=== PATIENT | male | born 1950 | race Caucasian/White ===

== ENCOUNTER 2018-08-27 06:57 | Inpatient (IN) | payer BC, MEDICARE ==
--- NOTE | 2018-08-13 11:32 | HP ---
AMENDED REPORT NOW INCLUDES COSIGNER DESIGNATION HISTORY AND PHYSICAL: DATE OF SURGERY: 08/27/18 DATE OF OFFICE VISIT: 08/12/18 SURGEON: Sabra Kahn MD.* (DICTATED BY QUITA FLYNN) PROCEDURE: Left total hip arthroplasty. CHIEF COMPLAINT: Left hip pain. HISTORY OF PRESENT ILLNESS: Mr. Lobato is a 67-year-old gentleman with complaints of left hip pain. He has failed conservative treatment and elected to proceed with a left total hip arthroplasty. PAST MEDICAL HISTORY: Hypertension, depression, anxiety, and history of alcohol addiction. PAST SURGICAL HISTORY: Right rotator cuff repair, lumbar diskectomy, and a right quad tendon repair. CURRENT MEDICATIONS: 1. Propranolol 60 mg daily. 2. Aspirin 81 mg daily. 3. Multivitamin. 4. Ibuprofen as needed. ALLERGIES: No known drug allergies. FAMILY HISTORY: Unknown. He is adopted. SOCIAL HISTORY: He is a 67-year-old gentleman who lives with his spouse. He does not smoke or use drugs. Uses occasional alcohol. REVIEW OF SYSTEMS: A complete 14-point review of systems was reviewed with the patient, was all negative or noncontributory. He denies a history of DVT, PE, hepatitis, HIV, or anesthesia problems. PHYSICAL EXAMINATION GENERAL: He is well developed, well nourished, in no acute distress. VITAL SIGNS: He stands 6 feet 2 inches tall, weighs 240 pounds. Blood pressure is 164/100, his pulse is 64. HEENT: Normocephalic, atraumatic. NECK: Supple. No palpable lymph nodes. PULMONARY: The lungs are clear to auscultation bilaterally. CARDIO: Regular rate and rhythm. Strong S1, S2. ABDOMEN: Soft, nontender, and nondistended. NEUROLOGICAL: He is alert and oriented x3. MUSCULOSKELETAL: Left lower extremity: The skin is intact. There are no open wounds or abrasions. He walks with an antalgic-type gait favoring his left hip. He has 90 degrees of hip flexion, 0 degrees internal rotation, 30 degrees of external rotation. He has 2+ dorsalis pedis pulse. Intact sensation. His lower extremity muscle group strengths are intact at 5/5. ASSESSMENT AND PLAN: Mr. Lobato is a 67-year-old gentleman with end-stage osteoarthritis of the left hip pain. He has failed conservative treatment and elected to proceed with a left total hip arthroplasty. The surgery is scheduled for 08/27/[address] Kahn discussed the risks and benefits of the surgery at today's visit and all of his questions were answered. He will follow up with Dr. Kahn 2 weeks after the surgery. QUITA FLYNN [id number]/[facility] #: [id number] TORO
[~2018-08-27 06:57] MED LIST: Buffered Lidocaine 1% SYRIN* 1 ML/SYRINGE INTRADERM ONE; Lactated Ringers 1000 ML Bag* 1,000 ML IV SCH
[2018-08-27] MEDS ORDERED: Propofol* 10 MG/ML 20 ML BTL ONE (07:00)
[2018-08-27] MEDS ORDERED: Lidocaine 2% PF * 5 ML VIAL ONE (07:00)
[2018-08-27] MEDS ORDERED: Dexmedetomidine* 200 MCG/2 ML 2 ML VIAL ONE (07:01)
[2018-08-27] MEDS ORDERED: ROPIVACAINE 5 MG/ML 30 ML BTL (0.5%) ONE (07:01)
[2018-08-27] MEDS ORDERED: ceFAZolin 2 GM PREMIX in ORs 2 GM/50 ML BAG IVPB ONE (07:49)
[2018-08-27] MEDS ORDERED: Bupivacaine 0.5% SDV PF* 30ML VIAL ONE (07:50)
[2018-08-27] MEDS ORDERED: Midazolam* 1 MG/ML 2 ML VIAL (2 MG) ONE (07:54)
[2018-08-27 07:57] VITALS: BP 130/80
[2018-08-27] MEDS ORDERED: Rocuronium* 10 MG/ML VIAL ONE (08:12)
== END 2018-08-27 09:07 | disposition home or self-care (01) | DRG 351 ==
LOC: AA 06:57
PROVIDERS: ADMIT Orthopaedic Surgery Adult Reconstructive Orthopaedic Surgery; ATTEND Orthopaedic Surgery Adult Reconstructive Orthopaedic Surgery
DX: M16.12 Unilateral primary osteoarthritis, left hip (principal); I10 Essential (primary) hypertension; F32.9 Major depressive disorder, single episode, unspecified; F41.9 Anxiety disorder, unspecified; Z72.89 Other problems related to lifestyle
CPT/HCPCS: J0690; J2250; J2704; J2795

== ENCOUNTER 2018-09-22 10:06 | Inpatient (IN) | payer BC, MEDICARE ==
--- NOTE | 2018-09-09 13:30 | HP ---
HISTORY AND PHYSICAL: DATE OF ADMISSION/SURGERY: 09/22/18 DATE OF OFFICE VISIT: 09/09/18 SURGEON: Sabra Kahn MD * (DICTATED BY QUITA FLYNN) PROCEDURE: Left total hip arthroplasty. CHIEF COMPLAINT: Left hip pain. HISTORY OF PRESENT ILLNESS: Mr. Lobato is a 67-year-old gentleman with end- stage osteoarthritis of the left hip. He has failed conservative treatment and elected to proceed with a left total hip arthroplasty. PAST MEDICAL HISTORY: 1. Hypertension. 2. Depression. 3. Anxiety. 4. History of alcohol addiction. PAST SURGICAL HISTORY: 1. Right rotator cuff repair. 2. Diskectomy. 3. Right quad tendon repair. 4. Placement of a chest tube. CURRENT MEDICATIONS: 1. Propranolol 60 mg a day. 2. Daily multivitamin. 3. [place] 5/325 as needed. 4. Benicar 20/12.5 mg a day. ALLERGIES: No known drug allergies. FAMILY HISTORY: Unknown. SOCIAL HISTORY: He is a 67-year-old gentleman, lives with his spouse. He does not use drugs or smoke. He reports having a few drinks per week. REVIEW OF SYSTEMS: A complete 14-point review of systems reviewed with the patient. It was all negative or noncontributory. He denies history of DVT, PE , hepatitis, HIV, or anesthesia problems. PHYSICAL EXAMINATION GENERAL: He is well developed, well nourished, in no acute distress. VITAL SIGNS: He stands 6 feet 2 inches tall, weighs 235 pounds. His blood pressure is 130/88, his heart rate is 64. HEENT: Normocephalic, atraumatic. NECK: Supple. No palpable lymph nodes. PULMONARY: The lungs are clear to auscultation bilaterally. CARDIO: Regular rate and rhythm. Strong S1, S2. ABDOMEN: Soft, nontender, nondistended. NEUROLOGICAL: He is alert and oriented x3. MUSCULOSKELETAL: Left lower extremity, the skin is intact. There are no open wounds or abrasions. He walks with an antalgic type gait favoring his left hip. He has decreased internal and external rotation of the right hip. He has a 2+ dorsalis pedis pulse. Intact sensation. His lower extremity muscle group strengths are intact at 5/5. ASSESSMENT AND PLAN: Mr. Lobato is a 67-year-old gentleman with end-stage osteoarthritis of the left hip. He has failed conservative treatment and elected to proceed with a left total hip arthroplasty. The surgery is scheduled for 09/22/[address] Kahn discussed the risks and benefits of the surgery at today's visit and all of his questions were answered. He will follow up with Dr. Kahn 2 weeks after the surgery. QUITA FLYNN [id number]/[facility] #: [id number] MTDD
[~2018-09-22 10:06] MED LIST changes: +Acetaminophen IV 1GM/100ML * 1,000 MG/100 ML VIAL IVPB ONE; +Dexamethasone IV* 4 MG/ML 1 ML (4 MG) IV SLOW PU ONE; +Famotidine IV* 10 MG/ML 2 ML (20 mg) IV ONE; +Gabapentin CAP(*) 300 MG PO ONE; +celeCOXIB CAP* 200 MG PO ONE
--- OUTSIDE RECORDS SUMMARY | 2018-09-22 10:11 | XMS REPORT | Continuity of Care Document ---
:1950 External Reference #:[id number] Author Name Yanni Bunch Care Team Providers Name Role Phone Ryan Rothman MD Primary Care Physician Unavailable Payers Date Identification Numbers Payment Provider Subscriber Policy Number: [id number] [facility] Flako Ruffin PayID: [id number] [address] [place] [address] Advance Directives Description No Information Available Problems Date Description Provider Status Onset: 06/24/2018 Localized, primary osteoarthritis Sabra Kahn M.D. Active Onset: 06/24/2018 Localized, primary osteoarthritis of Sabra Kahn M.D. Active the pelvic region and thigh Onset: 03/03/2017 Alcohol abuse with alcohol-induced Abrahan Aquino M.D. Active mood disorder Onset: 03/03/2017 Amnesia Abrahan Aquino M.D. Active Onset: 03/03/2017 Feeling irritable Abrahan Aquino M.D. 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 Currently consumes alcohol Recreational Drug Use Denies Drug Use Tobacco Use Start: Unknown Patient has never smoked Smoking Status Reviewed: 09/09/18 Patient has never smoked Exercise Type/Frequency Exercises sporadically Allergies, Adverse Reactions, Alerts Description No Known Drug Allergies Medications Medication Date Status Form Strength Qnty SIG Indications Ordering Provider Hospital Bed 07/17/ Active use for M16.0 Sabra 2019 after left Zana Kahn hip replacement Propranolol 03/03/ Active Tablets 60mg 30tab 1 by mouth Christopher HCL 2017 s every day Zana Aquino Multi Vitamin 00/00/ Active Tablets 1 by mouth Unknown 0000 every day Benicar HCT / Active Tablets 20-12.5mg 1 by mouth Unknown 0000 every day Hydrocodone-A / Active Tablets 5-325mg 1 or 2 tabs Unknown cetaminophen 0000 by mouth every 6-8 hours as needed for pain [place] 08/03/ Hx Tablets 5-325mg 60tab 1 tabs by Sabra 2019 - s mouth every Zana Kahn hours as 2019 needed for pain Tramadol HCL 07/24/ Hx Tablets 50mg 120ta 1 tablet by Sabra 2019 - bs mouth every Zana Kahn hours as 2018 needed pain Symbicort / Hx Aerosol 160-4.5mc 2 puff twice Unknown 0000 - g/Act a day, as 2017 Alprazolam / Hx Tablets 0.25mg one by mouth Unknown 0000 - up to three 02/23/ times daily 2016 as needed for anxiety Trazodone HCL / Hx Tablets 50mg 1 tablet at Unknown 0000 - bedtime as 2017 Naltrexone / Hx Tablets 50mg 1 by mouth Unknown HCL 0000 - every day 2017 Thiamine HCL / Hx Tablets 100mg 1 by mouth Unknown 0000 - every day 2016 Aspir-81 / Hx Tablets 81mg 30tab 1 by mouth Unknown 0000 - DR s every day 2018 Meloxicam / Hx Tablets 15mg 1 by mouth Unknown 0000 - every day 2018 Acamprosate / Hx Tablets 333mg 2 tabs by Unknown Calcium 0000 - DR mouth three 08/11/ times a day 2018 Tramadol HCL / Hx Tablets 50mg Take One Unknown 0000 - Tablet By 07/17/ Mouth Every 2018 6 Hours as Needed Maximum Daily Dose 4 Tablets Ibuprofen / Hx Unknown 0000 - 2018 Medications Administered in Office Medication Date Status Form Strength Qnty SIG Indications Ordering Provider Depomedrol Administered Injection Sabra 40MG 018 Zana Kahn Depomedrol Administered Injection Sabra 40MG 018 Femi, M.D. Immunizations Description No Information Available Vital Signs Date Vital Result Comment 09/09/2018 9:23am Height 74 inches 6'2" Weight 235.00 lb Heart Rate 64 /min BP Systolic 130 mmHg BP Diastolic 88 mmHg BMI (Body Mass Index) 30.2 kg/m2 08/12/2018 10:12am Height 74 inches 6'2" Weight 240.00 lb Heart Rate 64 /min BP Systolic 164 mmHg BP Diastolic 100 mmHg BMI (Body Mass Index) 30.8 kg/m2 08/03/2018 9:14am Height 74 inches 6'2" Heart Rate 64 /min BP Systolic 132 mmHg BP Diastolic 84 mmHg Body Temperature 97.0 F Pain Level 8 07/17/2018 8:17am Height 74 inches 6'2" Weight 225.00 lb BP Systolic 192 mmHg BP Diastolic 120 mmHg Pain Level 8 BMI (Body Mass Index) 28.9 kg/m2 06/24/2018 10:38am Height 74 inches 6'2" Weight 225.00 lb BP Systolic 148 mmHg BP Diastolic 84 mmHg Respiratory Rate 17 /min Pain Level 6 BMI (Body Mass Index) 28.9 kg/m2 03/03/2017 8:20am Height 74 inches 6'2" Weight 222.00 lb Heart Rate 64 /min BP Systolic Sitting 134 mmHg BP Diastolic Sitting 86 mmHg Respiratory Rate 12 /min BMI (Body Mass Index) 28.5 kg/m2 Results Test Date Facility Test Result H/L Range Note Inr/Protime 08/14/2018 [facility] Inr 0.94 N 0.77-1.[address] [place] [address] [phone] Laboratory test 08/14/2018 [facility] Partial 31.5 seconds N 26.0-36.[address] [place] [address] PTT [phone] CBC Auto Diff 08/14/2018 [facility] White Blood 10.6 10^3/uL N 3.5-10.[address] [place] [address] [phone] Red Blood Count 4.93 10^6/uL N 4.00-5.40 Hemoglobin 14.2 g/dL N 14.0-18.0 Hematocrit 43 % N 42-52 Mean Corpuscular Volume 87 fL N 80-94 Mean Corpuscular Hemoglobin 29 pg N 27-31 Mean Corpuscular HGB Conc 33 g/dL N 31-36 Red Cell Distribution Width 15 % N 10.5-15 Platelet Count 379 10^3/uL N 150-450 Mean Platelet Volume 7.0 fL Low 7.4-10.4 Abs Neutrophils 7.7 10^3/uL N 1.5-7.7 Abs Lymphocytes 1.6 10^3/uL N 1.0-4.8 Abs Monocytes 0.8 10^3/uL N 0-0.8 Abs Eosinophils 0.4 10^3/uL N 0-0.6 Abs Basophils 0.1 10^3/uL N 0-0.2 Abs Nucleated RBC 0 10^3/uL Granulocyte % 72.8 % Lymphocyte % 14.9 % Monocyte % 7.4 % Eosinophil % 3.9 % Basophil % 1.0 % Nucleated Red Blood Cells % 0 Urinalysis Profile 08/14/2018 [facility] Urine Color Yellow [address] [place] [address] [phone] Urine Appearance Cloudy Urine Specific [place] 1.035 High 1.010-1.030 Urine pH 5.0 N 5-9 Urine Urobilinogen Negative Negative Urine Ketones Negative Negative Urine Protein 1+(30 mg/dL) Abnormal Negative Urine Leukocytes Negative Negative Urine Blood Negative Negative Urine Nitrite Negative Negative Urine Bilirubin Negative Negative Urine Glucose Negative Negative Urine White Blood Cell Trace(0-5/hpf) Absent Urine Red Blood Cell 1+(3-5/hpf) Abnormal Absent Urine Bacteria Absent Absent Urine Squamous Epithelial Cell Present Abnormal Absent Urine Hyaline Casts Present Abnormal Absent Type & Screen 08/14/2018 [facility] Patient Blood Type O Positive [address] [place] [address] [phone] Antibody Screen NEGATIVE Comp Metabolic Panel 08/14/2018 [facility] Sodium 142 mmol/L N 135-[address] [place] [phone] Potassium 4.0 mmol/L N 3.5-5.0 Chloride 106 mmol/L N 101-111 Co2 Carbon Dioxide 28 mmol/L N 22-32 Anion Gap 8 mmol/L N 2-11 Glucose 103 mg/dL High 70-100 Blood Urea Nitrogen 25 mg/dL High 6-24 Creatinine 0.95 mg/dL N 0.67-1.17 BUN/Creatinine Ratio 26.3 High 8-20 Calcium 9.3 mg/dL N 8.6-10.3 Total Protein 6.7 g/dL N 6.4-8.9 Albumin 4.1 g/dL N 3.2-5.2 Globulin 2.6 g/dL N 2-4 Albumin/Globulin Ratio 1.6 N 1-3 Total Bilirubin 0.40 mg/dL N 0.2-1.0 Alkaline Phosphatase 77 U/L N 34-104 Alt 13 U/L N 7-52 Ast 13 U/L N 13-39 Egfr Non- 79.1 >60 Egfr 95.7 >60 3 Urine Culture And 08/14/2018 [facility] Urine Culture SEE RESULT [address] [place] [address] [phone] 1 AA 08/27 2 AA 08/27 3 Because ethnic data is not always readily available, this report includes an eGFR for both -Americans and non- Americans. The National Kidney Disease Education Program (NKDEP) does not endorse the use of the MDRD equation for patients that are not between the ages of 18 and 70, are , have extremes of body size, muscle mass, or nutritional status, or are non- or non-. According to the National Kidney Foundation, irrespective of diagnosis, the stage of the disease is based on the level of kidney function: Stage Description GFR(mL/min/1.73 m(2)) 1 Kidney damage with normal or decreased GFR 90 2 Kidney damage with mild decrease in GFR 60-89 3 Moderate decrease in GFR 30-59 4 Severe decrease in GFR 15-29 5 Kidney failure <15 (or dialysis) 4 SEE RESULT BELOW Name: RYAN RUFFIN : [address]: Sabra Kahn MD Acct: [id number] Unit: [id number] AGE: 67 Location: PAT Re08/14/18 SEX: M Status: REG REF SPEC: [id number] VIKTOR: 08/14/[address]: Sabra Kahn MD REQ: [id number] RECD: 08/14/18 STATUS: COMP OTHR DR: Ryan Rothman MD _ SOURCE: URINE SPDESC: ORDERED: Urine Culture COMMENTS: ANNABEL 08/27 QUERIES: Urine Source: Clean Catch Procedure Result Reported Site Urine Culture Final 08/15/18- 1026 ML No Growth (<1,000 CFU/mL) * ML - Main Lab . END OF REPORT DEPARTMENT OF PATHOLOGY, [address] [place] [address] Buddy Gomez M.D. Director [facility] # [id number] Procedures Date Code Description Status 06/24/2018 85398 Inj/Aspir Major JT Or Bursa W/ US Completed Encounters Type Date Location Provider Dx Diagnosis Office Visit 08/03/2018 Orthopedic Sabra Kahn, M25.551 Pain in right hip 9:00a Services Of C.Ruth.Roni. MSamDSam M25.552 Pain in left hip M16.0 Bilateral primary osteoarthritis of hip Office Visit 07/17/2018 8:15a Orthopedic Services Sabra Kahn M25.551 Pain in right Of C.M.A. M.D. hip M25.552 Pain in left hip M16.0 Bilateral primary osteoarthritis of hip Office Visit 06/24/2018 10:00a Orthopedic Services Sabra Kahn M25.551 Pain in right Of C.M.A. M.D. hip M25.552 Pain in left hip M16.0 Bilateral primary osteoarthritis of hip M25.562 Pain in left knee M25.561 Pain in right knee M25.462 Effusion, left knee M25.461 Effusion, right knee M17.0 Bilateral primary osteoarthritis of knee Office Visit 03/03/2017 Juice Gauthier F10.14 Alcohol abuse with 8:00a Chioma Aquino M.D. alcohol-induced mood Services Of [employer] disorder R45.4 Irritability and anger R41.3 Other amnesia R94.02 Abnormal brain scan Plan of Treatment Future Appointment(s):10/05/2018 1:15 pm - Sabra Kahn M.D. at [facility]09/22/2018 2:30 pm - Silvio Sullivan PA-C at [facility]09/22/2018 2:30 pm - QUITA Mora at [facility]09/22/2018 2:30 pm - [facility] - Sabra Kahn M.D.M25.552 Pain in left hipFollow up:Follow up: 2 weeks after [id number] Bilateral primary osteoarthritis of hip
--- OUTSIDE RECORDS SUMMARY | 2018-09-22 10:11 | XMS REPORT | Continuity of Care Document ---
:1950 External Reference #:[id number] Author Name DattoLubna abdullahie Care Team Providers Name Role Phone Ryan Rothman MD Primary Care Physician Unavailable Payers Date Identification Numbers Payment Provider Subscriber Policy Number: [id number] [facility] Flako Ruffin PayID: [id number] [address] [place] [address] Advance Directives Description No Information Available Problems [...] s every day Zana Aquino Multi Vitamin // Active Tablets 1 by mouth Unknown 0000 every day Benicar HCT / Active Tablets 20-12.5mg 1 by mouth Unknown 0000 every day Hydrocodone-A / Active Tablets 5-325mg 1 or 2 tabs Unknown cetaminophen 0000 by mouth every 6-8 hours as needed for pain [place] 08/03/ Hx Tablets 5-325mg 60tab 1 tabs [...] Injection Sabra 40MG 018 Zana Kahn Depomedrol 12/19/2 Administered Injection Sabra 40MG 018 Zana Kahn Immunizations Description No Information Available Vital Signs [...] Date Facility Test Result H/L Range Note Type & Screen 09/09/2018 [facility] Patient Blood O Positive [address] [place] [address] [phone] Antibody Screen NEGATIVE Inr/Protime 08/14/2018 [facility] Inr 0.94 N 0.77-1.[address] [place] [address] [phone] Laboratory test 08/14/2018 [facility] Partial 31.5 seconds N 26.0-36.3 [address] [place] [address] PTT [phone] CBC Auto Diff 08/14/2018 [facility] White Blood 10.6 10^3/uL N 3.5-10.[address] [place] [address] [phone] Red Blood Count 4.93 10^6/uL N 4.00-5.40 [...] Blood Cells % 0 Urinalysis Profile 08/14/2018 [facility] Urine Color Yellow [address] [place] [address] [phone] Urine Appearance Cloudy Urine Specific [place] 1.035 High 1.010-1.030 Urine pH 5.0 N [...] Present Abnormal Absent Type & Screen 08/14/2018 [facility] Patient Blood Type O Positive [address] [place] [address] [phone] Antibody Screen NEGATIVE Comp Metabolic Panel 08/14/2018 [facility] Sodium 142 mmol/L N 135-145 [address] [place] [address] [phone] Potassium 4.0 mmol/L N 3.5-5.0 Chloride 106 [...] Egfr Non- 79.1 >60 Egfr 95.7 >60 4 Urine Culture And 08/14/2018 [facility] Urine Culture SEE RESULT [address] [place] [address] [phone] 1 PAIN IN LEFT HIP, BILATERAL PRIMARY OSTEOARTHRITIS 2 AA 08/27 3 AA 08/27 4 Because ethnic data is not always readily [...] 15-29 5 Kidney failure <15 (or dialysis) 5 SEE RESULT BELOW Name: RYAN RUFFIN Xiomara : [address]: Sabra Kahn MD Acct: [id number] Unit: [id number] AGE: 67 Location: [facility] Re08/14/18 SEX: M Status: REG REF SPEC: [id number] VIKTOR: 08/14/18-[address] [facility] [address]: Sabra Kahn MD REQ: [id number] RECD: 08/14/18 STATUS: ROMAN HENDRICKSON DR: Ryan Rothman MD _ SOURCE: URINE SPDESC: ORDERED: Urine Culture COMMENTS: ANNABEL 08/27 QUERIES: Urine Source: Clean Catch Procedure Result Reported Site Urine Culture Final 08/15/18- 1026 ML No Growth (<1,000 CFU/mL) * - Main Lab . END OF REPORT DEPARTMENT OF PATHOLOGY, [address] [place] [address] Buddy Gomez M.D. Director [facility] # [id number] Procedures Date Code Description Status 06/24/2018 Inj/Aspir Major JT Or Bursa W/ US Completed Encounters Type Date Location Provider Dx Diagnosis Office Visit 08/03/2018 Orthopedic Sabra Kahn, M25.551 Pain in right hip 9:00a Services [facility] MSamDSam M25.552 Pain in left hip M16.0 Bilateral primary osteoarthritis of hip Office Visit 07/17/2018 8:15a Orthopedic Services Sabra Kahn, M25.551 Pain in right Of C.M.A. M.D. hip M25.552 Pain in left hip M16.0 Bilateral primary osteoarthritis of hip Office Visit 06/24/2018 10:00a Orthopedic Services Sabra Kahn, M25.551 Pain in right Of C.M.A. M.D. hip M25.552 Pain in left hip M16.0 Bilateral primary osteoarthritis of hip M25.562 Pain in left knee M25.561 Pain in right knee M25.462 Effusion, left knee M25.461 Effusion, right knee M17.0 Bilateral primary osteoarthritis of knee Office Visit 03/03/2017 Juice Gauthier F10.14 Alcohol abuse with 8:00a Chioma Aquino M.D. alcohol-induced mood Services Of [employer] disorder R45.4 Irritability and anger R41.3 Other amnesia R94.02 Abnormal brain scan Plan of Treatment Future Appointment(s):10/05/2018 1:15 pm - Sabra Kahn M.D. at [facility]09/22/2018 2:30 pm - Silvio Sullivan PA-C at [facility]09/22/2018 2:30 pm - QUITA Mora at [facility].09/22/2018 2:30 pm - Sabra Kahn M.D. at [facility]09/09/2018 - Sabra Kahn M.D.M25.552 Pain in left hipFollow up:Follow up: 2 weeks after caghpabD03.0 Bilateral primary osteoarthritis of hip
[2018-09-22] MEDS ORDERED: Dexamethasone IV* 4 MG/ML 1 ML (4 MG) ONE (10:33)
[2018-09-22] MEDS ORDERED: celeCOXIB CAP* 100 MG ONE (10:33)
[2018-09-22] MEDS ORDERED: Famotidine IV* 10 MG/ML 2 ML (20 mg) ONE (10:33)
[2018-09-22] MEDS ORDERED: Gabapentin CAP(*) 300 MG ONE (10:33)
[2018-09-22] MEDS ORDERED: ceFAZolin 2 GM in NS PREMIX(*) 2 GM/100 ML BAG IVPB ONE (10:34)
[2018-09-22] MEDS ORDERED: ROPIVACAINE 5 MG/ML 30 ML BTL (0.5%) ONE (11:04)
[2018-09-22] MEDS ORDERED: Ropivacaine* 2 MG/ML 20 ML VIAL (0.2%) ONE (12:37)
[2018-09-22] MEDS ORDERED: fentaNYL* 50 MCG/ML 2 ML VIAL (100 MCG VIAL) ONE ×2 (12:43→15:37)
[2018-09-22] MEDS ORDERED: Midazolam* 1 MG/ML 5 ML VIAL (5 MG) ONE ×2 (12:43→15:21)
[2018-09-22] MEDS ORDERED: KETAMINE HCL* 50 MG/ML 10 ML VIAL ONE (12:43)
[2018-09-22] MEDS ORDERED: Bupivacaine 0.5% SDV PF* 30ML VIAL ONE (12:44)
[2018-09-22] MEDS ORDERED: Phenylephrine 10 MG/ML VIAL* 1 ML VIAL ONE (12:45)
[2018-09-22] MEDS ORDERED: Acetaminophen IV 1GM/100ML * 100 ML ONE (13:12)
[2018-09-22] MEDS ORDERED: Ondansetron INJ* 2 MG/ML VIAL ONE (13:17)
[2018-09-22] MEDS ORDERED: Bupivacaine 0.5%* 50 ML VIAL ONE (13:20)
[2018-09-22] MEDS ORDERED: Lidocaine 2% PF * 5 ML VIAL ONE (14:54)
[2018-09-22] MEDS ORDERED: Ondansetron INJ* 2 MG/ML VIAL IV PRN ×2 (15:07→17:14)
[2018-09-22] MEDS ORDERED: DiMENhydriNATE IV* 50 MG/ML VIAL IV PUSH PRN (15:07)
[2018-09-22] MEDS ORDERED: HYDROmorphone INJ1* 1 MG/ML SYRINGE IV PRN (15:07)
[2018-09-22] MEDS ORDERED: fentaNYL* 50 MCG/ML 2 ML VIAL (100 MCG VIAL) IV PRN (15:07)
[2018-09-22] MEDS ORDERED: Naloxone* 0.4 MG/ML 1 ML VIAL IV PRN (15:07)
[2018-09-22] MEDS ORDERED: Propofol* 10 MG/ML 20 ML BTL ONE (16:30)
[2018-09-22] MEDS ORDERED: Bisacodyl SUPP* 10 MG SUPP PR PRN (17:14)
[2018-09-22] MEDS ORDERED: diPHENhydraMINE IV* 50 MG/ML 1 ml VIAL (BENADRYL) IV PRN (17:14)
[2018-09-22] MEDS ORDERED: oxyCODONE/Acetamin 5/325 MG* TAB PO PRN (17:14)
[2018-09-22] MEDS ORDERED: Polyethylene Glycol 3350* 17 GM PACKET PO PRN (17:14)
[2018-09-22] MEDS ORDERED: Acetaminophen TAB* 325 MG PO PRN (17:14)
[2018-09-22] MEDS ORDERED: Magnesium Hydroxide LIQ* 30 ML UDC PO PRN (17:14)
[2018-09-22] MEDS ORDERED: Albuterol HFA INHALER* 8 gm MDI INH PRN (17:24)
--- NOTE | 2018-09-22 19:17 | CONS ---
CONSULTATION REPORT: DATE OF CONSULT: 09/22/18 REQUESTING PHYSICIAN: Dr. Sabra Kahn. ATTENDING PHYSICIAN: Dr. Charmaine Bose. REASON FOR CONSULT: Co-medical management of hypertension. HISTORY OF PRESENT ILLNESS/HOSPITAL COURSE: I refer you to Dr. Sabra Kahn's history and physical dictated on 09/09/18 for complete details, but in short, Mr. Lobato is a 67-year-old male with end-stage osteoarthritis of the left hip. He has failed conservative treatment and has elected to have a left total hip arthroplasty. PAST MEDICAL HISTORY: 1. Hypertension. 2. Depression. 3. Anxiety. PAST SURGICAL HISTORY: Left total knee arthroplasty, left ankle, right knee, lumbar spine, right rotator cuff. HOME MEDICATIONS: 1. Propranolol 60 mg p.o. q.a.m. 2. Benicar HCT 20/12.5 one tab p.o. q.a.m. 3. Hydrocodone/acetaminophen 5/325 one tab p.o. q.4 hours p.r.n. pain, MDD 6. 4. Albuterol HFA inhaler 2 puffs inhalation q.6 hours p.r.n. ALLERGIES: No known drug allergies. FAMILY HISTORY: The patient was adopted and knows nothing about his family medical history. SOCIAL HISTORY: The patient does not smoke and never has used tobacco. He denies use of recreational drugs. The patient states that he drinks 4 to 5 drinks per week. In the event that he is unable to make his own medical decisions, he appoints his , Flako Lobato, phone number [phone], to make medical decisions for him. REVIEW OF SYSTEMS: The patient denies chest pain, shortness of breath, cough, fever, abdominal pain, nausea, vomiting, diarrhea, constipation, pain in the lower extremities. He has a nerve block and currently denies left hip pain. PHYSICAL EXAM: General: Mr. Lobato is a well-developed, well-nourished white male, who is sitting up in bed. He is in no acute distress. He appears well. HEENT: Visual honeycutt are grossly intact. Pupils are equally round and reactive to light. Extraocular movements are intact. Sclerae are without icterus. His hearing is grossly intact. Oral mucous membranes are moist. Pharynx is clear. Cardiovascular: Regular rate and rhythm with S1, S2. No murmurs, rubs, or gallops. No JVD. Respiratory: Symmetrical chest expansion with no use of accessory muscles. Anterior lung sounds clear to auscultation. No rhonchi, wheezes, or rubs. Abdomen: Bowel sounds in all quadrants. Abdomen is soft and nontender to palpation. There is no hepatosplenomegaly. Extremities: Skin is warm and smooth bilaterally. The left hip has a dressing that is clean, dry, and intact. There is no clubbing or cyanosis. No edema. Radial and pedal pulses are 2+ bilaterally. Neuro: The patient is awake. He is alert and oriented x3. Sensation, movement, and capillary refill intact in bilateral lower extremities. ASSESSMENT AND PLAN: Mr. Lobato is a 67-year-old male with past medical history as described above, who presented to [facility] today for an elective total hip arthroplasty. The patient will be admitted for: 1. Left total hip arthroplasty. Management per Ortho. 2. Hypertension. The patient's home medications propranolol and Benicar will be held tonight. The patient will restart propranolol tomorrow with hold restrictions in place. Benicar can likely be restarted at discharge. 3. Code status: Full code. 4. DVT prophylaxis: Per Surgery, Lovenox 40 mg subcu q.24 hours. TIME SPENT: Approximately 20 minutes was spent on this consultation, greater than half that time was spent with the patient. QUITA CAMPBELL [id number]/[facility] #: [id number] TORO
[2018-09-22] MEDS: Lactated Ringers 1000 ML Bag* 1,000 ML IV SCH (20:09)
[2018-09-22] MEDS ORDERED: Warfarin TAB(*) 6 MG PO ONE (21:00)
[2018-09-22] MEDS: Docusate CAP* 100 MG PO SCH (21:50)
[2018-09-22] MEDS: Magnesium Hydroxide LIQ* 30 ML UDC PO SCH (21:51)
[2018-09-22] MEDS: Morphine 4 MG/ML VIAL (1 ml) 4 MG/ML VIAL IV PRN (21:51)
[2018-09-22] MEDS: ceFAZolin 1 GM in Dextrose (*) 1 GM/50 ML BAG IVPB SCH (21:59)
[2018-09-22] MEDS: oxyCODONE/Acetamin 5/325 MG* TAB PO PRN (22:03)
[2018-09-23] MEDS: oxyCODONE TAB* 5 MG TAB PO PRN ×6 (00:31→23:11)
[2018-09-23] MEDS: Morphine 4 MG/ML VIAL (1 ml) 4 MG/ML VIAL IV PRN ×2 (00:32→16:29)
[2018-09-23] MEDS: Cyclobenzaprine TAB* 10 MG PO PRN ×3 (00:38→18:15)
[2018-09-23] MEDS: oxyCODONE/Acetamin 5/325 MG* TAB PO PRN ×5 (03:09→21:01)
[2018-09-23] MEDS: ceFAZolin 1 GM in Dextrose (*) 1 GM/50 ML BAG IVPB SCH ×2 (05:45→12:35)
[2018-09-23 06:38] LABS: Hematocrit 35 % (36-46); Hemoglobin 11.5 g/dL (14.0-18.0); Mean Platelet Volume 7.1 fL (7.4-10.4); Platelet Count 314 10^3/uL (150-450)
[2018-09-23 06:48] LABS: INR 1.01 (0.77-1.02)
[2018-09-23] MEDS: Lactated Ringers 1000 ML Bag* 1,000 ML IV SCH (06:50)
[2018-09-23 07:08] LABS: BUN/Creatinine Ratio 25.5 (8-20); Calcium 8.6 mg/dL (8.6-10.3); EGFR African American 84.3 (>60); EGFR Non-African American 69.7 (>60); Potassium 3.9 mmol/L (3.5-5.0)
[2018-09-23] MEDS: Docusate CAP* 100 MG PO SCH ×2 (07:25→21:00)
[2018-09-23] MEDS: Magnesium Hydroxide LIQ* 30 ML UDC PO SCH ×2 (07:25→21:00)
[2018-09-23] MEDS: Propranolol LA CAP* 60 MG PO SCH (07:26)
[2018-09-23] MEDS ORDERED: Propranolol LA CAP* 60 MG PO SCH (09:00)
[2018-09-23] MEDS ORDERED: Hydrochlorothiazide TAB* 25 MG PO SCH (09:00)
[2018-09-23] MEDS ORDERED: Valsartan TAB* 160 MG PO SCH (09:00)
--- NOTE | 2018-09-23 10:25 | OP ---
DATE OF OPERATION: 09/22/18 - ROOM #341 DATE OF : 50. ATTENDING SURGEON: Sabra Kahn MD. COMPRESSOR OPERATOR: QUITA Trivedi. Mr. Sullivan did help throughout the procedure with preparation of the leg, wound retraction, manipulation of the hip, and wound closure. ANESTHESIOLOGIST: Dr. Conway. ANESTHESIA: Spinal. PRE-OP DIAGNOSIS: Severe endstage degenerative osteoarthritis of the left hip joint. POST-OP DIAGNOSIS: Severe endstage degenerative osteoarthritis of the left hip joint. OPERATIVE PROCEDURE: Left total hip arthroplasty. COMPLICATIONS: None. ESTIMATED BLOOD LOSS: 200 mL. SPECIMEN: Femoral head and acetabular reaming sent to pathology. HARDWARE USED: Uncemented Flomot total hip hardware. For the cup a Tritanium cluster hole 54 E; one 60-mm screw was used. For the liner, a Trident X3, 0 degree polyethylene liner 36E. For the stem, an Accolade II size 6 with a 127- degree neck. For the head, 36 -5 Biolox delta ceramic V40 femoral head. BRIEF HISTORY/INDICATION: Mr. Lobato is a 67-year-old gentleman with years of left hip pain. He failed conservative treatment with anti-inflammatories, pain medications, intraarticular injection and physical therapy. Due to continued pain and decreased quality of life, he elected to undergo left total hip arthroplasty. Informed consent was obtained from the patient. He understood the risk of surgery included but were not limited, bleeding, infection, damage to nearby structures, continued pain, need for further surgery, intraoperative fracture, nerve palsy, hardware failure or loosening, dislocation, leg length discrepancy, stroke, heart attack, blood clot, and . He wished to proceed. INTRAOPERATIVE FINDINGS: Intraoperatively, the patient was noted to have severe endstage arthritis with complete loss of cartilage along the femoral head and acetabulum. He had extensive osteophyte formation around the acetabulum. DESCRIPTION OF PROCEDURE: Mr. Lobato was identified in the preanesthesia unit. His left lower extremity was marked as the correct operative side. Informed consent was signed and placed in the chart. The patient was taken to the operating room and placed under anesthesia without difficulty. A Cornell catheter was placed. The patient was placed in the right lateral decubitus position on the peg board. All bony prominences were well padded. Left lower extremity was prepped and draped in the usual sterile fashion. Preop time-out was made to correctly identify the patient, side, and site. Appropriate perioperative antibiotics were given within 1 hour of incision. A posterior hip incision was made with a 10-blade and carried down to the lateral fascial layer. Lateral fascial layer was incised in line with the incision. Charnley retractor was placed. The piriformis and conjoint tendons were identified. off the posterolateral femur and tagged with #5 Ethibond . Electrocautery was used to make a standard posterolateral capsular flap and this was also tagged with #5 Ethibond. The hip was carefully dislocated. Lesser troch to center to the femoral head measured 55 mm. Oscillating saw was used to make the appropriate femoral neck cut. The femoral head was carefully removed. The femur was retracted anteriorly. After appropriate placement of the retractors the acetabulum was well visualized. A long handled knife was used to sharply remove any remaining labrum from the acetabular rim. The acetabulum was sequentially reamed up to a size 53. The 53 reamer obtained bleeding subchondral bone bed. The 53 trial had excellent fit. The final implant chosen was a 54 E Tritanium cluster hole shell. This was impacted into the acetabulum and had excellent fit and stability. Abduction angle and anteversion were appropriate. A single 60 mm screw was placed in the superoposterior quadrat for extra stability. A Trident X3 0 degree polyethylene liner 36E was chosen as the proper liner. This was impacted into the acetabulum. Stability of the liner was checked and rechecked and noted to be stable. Next, attention was turned to preparation of the femoral canal. A canal finder were used to enter the proximal femur. The femoral canal was sequentially broached up to a size 6. The size 6 broach had excellent fit and good stability. There was appropriate anteversion. A 127 neck trial with 36 +0 trial was chosen. Lesser troch to center of femoral head measurement was 60. Therefore, 36 -5 head trial was chosen. Lesser troch to center of femoral head measured 55 mm. The hip was reduced and taken through a range of motion. The hip was stable in all positions. There was soft tissue tension and appropriate leg lengths. The hip was carefully dislocated. All trials were removed. The final implant chosen was an Accolade II size 6 with a 127-degree neck angle. The stem was impacted into the femur without difficulty. The stem was stable with appropriate anteversion. A Biolox delta ceramic V40 femoral head 36 -5 was chosen and impacted onto the femoral neck. Final measurements of lesser troch to the center of femoral head measured 55 mm. The hip was reduced and taken through range of motion. The hip was stable in all positions. The hip was copiously irrigated with sterile saline. Previously tagged capsule and tendons were reapproximated to the posterolateral femur through 2 trochanteric drill holes. The lateral fascial layer was closed using interrupted #1 Vicryls. The rest of the incision was closed in a layered fashion using 0 and 2-0 Vicryls. Skin was closed using running 3-0 Monocryl and Dermabond. Sterile Adaptic, 4x4s, and paper tape were used to cover the incision. The patient's anesthesia was reversed without difficulty. He was taken to the PACU in stable condition. Intended weightbearing will be weightbearing as tolerated. Intended DVT prophylaxis will be Eliquis. [id number]/[facility] #: [id number] TORO
[2018-09-23] MEDS: Enoxaparin(*) 40 MG/0.4 ML SYR SUBCUT SCH (12:35)
--- NOTE | 2018-09-23 15:35 | PN ---
Progress Note - Progress Note Date of Service: 09/23/18 SOAP: Subjective: []Pt seen and examined at bedside POD [address] Kahn. Denies CP, SOB, dizziness or nausea Objective: []General: Well appearing, NAD LLE: Left hip dressing CDI, thigh is soft, DF/PF intact, DP2+, sensation intact to light touch distally Calves supple and nontender without erythema, edema or palpable cords Assessment: []LTH 09/22 Dr Kahn Plan: []WBAT PT/OT Posterior hip precautions Lovenox bridge to coumadin. COumdin 8 mg today Anticipate DC home tomorrow Vital Signs Temp 97.1 F 09/23/18 11:14 Pulse 64 09/23/18 11:14 Resp 20 09/23/18 13:57 BP 96/55 09/23/18 11:14 Pulse Ox 95 09/23/18 11:14 Intake & Output 09/22/18 09/23/18 09/23/18 18:59 06:59 18:59 Intake Total 1700 1905 1255 Output Total 150 758 675 Balance 1550 1147 580 Weight 231 lb Intake: IV Fluids 1700 1105 670 LR 1600 1105 615 NS 100ML, Cefazolin 2G 100 cefazolin 55 IVPB 55 cefazolin 55 Oral 800 530 Output: Urine 675 Cornell 150 758 Laboratory Last Values Hgb 11.5 g/dL (14.0-18.0) L 09/23/18 06:02 Hct 35 % (36-46) L 09/23/18 06:02 Plt Count 314 10^3/uL (150-450) 09/23/18 06:02 MPV 7.1 fL (7.4-10.4) L 09/23/18 06:02 INR (Anticoag Therapy) 1.01 (0.77-1.02) 09/23/18 06:02 Sodium 138 mmol/L (135-145) 09/23/18 06:02 Potassium 3.9 mmol/L (3.5-5.0) 09/23/18 06:02 Chloride 101 mmol/L (101-111) 09/23/18 06:02 Carbon Dioxide 31 mmol/L (22-32) 09/23/18 06:02 Anion Gap 6 mmol/L (2-11) 09/23/18 06:02 BUN 27 mg/dL (6-24) H 09/23/18 06:02 Creatinine 1.06 mg/dL (0.67-1.17) 09/23/18 06:02 Est GFR ( Amer) 84.3 (>60) 09/23/18 06:02 Est GFR (Non-Af Amer) 69.7 (>60) 09/23/18 06:02 BUN/Creatinine Ratio 25.5 (8-20) H 09/23/18 06:02 Glucose 155 mg/dL (70-100) H 09/23/18 06:02 Calcium 8.6 mg/dL (8.6-10.3) 09/23/18 06:02
[2018-09-23] MEDS ORDERED: Warfarin TAB(*) 4 MG PO ONE (17:00)
--- NOTE | 2018-09-23 17:56 | PN ---
Subjective Date of Service: 09/23/18 Interval History: Pt c/o of pain in L hip. He states that he finished physical therapy approximately 30 minutes ago. He feels well otherwise, and denies CP, SOB, cough, fever, abd pain, n/v/d/c, difficulty urinating. He states he has not had a BM today. He is eating well. He denies calf pain. Objective Active Medications: Acetaminophen (Tylenol Tab*) 650 mg PO Q8H PRN Albuterol (Ventolin Hfa Inhaler*) 2 puff INH Q6H PRN Bisacodyl (Dulcolax Supp*) 10 mg PA DAILY PRN Cyclobenzaprine HCl (Flexeril Tab*) 5 mg PO TID PRN Diphenhydramine HCl (Benadryl Iv*) 25 mg IV Q6H PRN Docusate Sodium (Colace Cap*) 100 mg PO BID HUI Enoxaparin Sodium (Lovenox(*)) 40 mg SUBCUT Q24H HUI Lactated Ringer's (Lactated Ringers 1000 Ml Bag*) 1,000 mls @ 100 mls/hr IV PER RATE HUI Magnesium Hydroxide (Milk Of Magnesia Liq*) 30 ml PO BID HUI Magnesium Hydroxide (Milk Of Magnesia Liq*) 30 ml PO Q6H PRN Morphine Sulfate (Morphine 4 Mg/Ml Vial (1 Ml)) 2 mg IV Q2H PRN Ondansetron HCl (Zofran Inj*) 4 mg IV Q6H PRN Oxycodone HCl (Roxycodone Tab*) 10 mg PO Q4H PRN Oxycodone/Acetaminophen (Percocet 5/325 Tab*) 1 tab PO Q4H PRN Oxycodone/Acetaminophen (Percocet 5/325 Tab*) 2 tab PO Q4H PRN Polyethylene Glycol/Electrolytes (Miralax*) 17 gm PO DAILY PRN Propranolol HCl (Inderal La Cap*) 60 mg PO QAM HUI Tramadol HCl (Ultram*) 50 mg PO Q6H PRN Vital Signs: Temp Pulse Resp BP Pulse Ox 98.9 F 71 16 121/65 93 09/23/18 17:47 09/23/18 17:47 09/23/18 17:48 09/23/18 17:47 03/20/19 17:47 Oxygen Devices in Use Now: None Appearance: Pt is laying in bed with LE elevated. He appears to be slightly uncomfortable, but is in no acute distress. Eyes: No Scleral Icterus, PERRLA Ears/Nose/Mouth/Throat: NL Teeth, Lips, Gums, Mucous Membranes Moist Neck: NL Appearance and Movements; NL JVP, Trachea Midline Respiratory: Symmetrical Chest Expansion and Respiratory Effort, Clear to Auscultation Cardiovascular: NL Sounds; No Murmurs; No JVD, RRR, No Edema Abdominal: NL Sounds; No Tenderness; No Distention, No Hepatosplenomegaly Extremities: No Edema, No Clubbing, Cyanosis, - - L hip dressing is CDI. Sensation and pedal pulses intact. Neurological: Alert and Oriented x 3 Result Diagrams: 09/23/18 06:02 09/23/18 06:02 Assess/Plan/Problems-Billing Assessment: Pt is a 67 yom with PMHx of HTN who present for LTHA. - Patient Problems (1) Status post total hip replacement, left Comment: -Management per ortho team (2) Hypertension Comment: -Pt received all home medications this morning, and was slightly hypotensive -D/c valsartan, HCTZ -Continue propranol with hold parameters (3) DVT prophylaxis Comment: -Per ortho: Lovenox (4) Full code status Status and Disposition: Inpatient. Discharge per ortho team.
[2018-09-23] MEDS: traMADol TAB* 50 MG PO PRN (23:11)
[2018-09-24] MEDS: Morphine 4 MG/ML VIAL (1 ml) 4 MG/ML VIAL IV PRN (00:37)
[2018-09-24] MEDS: Cyclobenzaprine TAB* 10 MG PO PRN ×2 (00:38→16:15)
[2018-09-24] MEDS: oxyCODONE/Acetamin 5/325 MG* TAB PO PRN ×3 (03:44→22:09)
[2018-09-24 05:17] LABS: Hematocrit 30 % (36-46); Hemoglobin 10.2 g/dL (14.0-18.0); Mean Platelet Volume 7.1 fL (7.4-10.4); Platelet Count 244 10^3/uL (150-450)
[2018-09-24 05:26] LABS: INR 1.54 (0.77-1.02)
[2018-09-24] MEDS: Propranolol LA CAP* 60 MG PO SCH (08:29)
[2018-09-24] MEDS: Docusate CAP* 100 MG PO SCH ×2 (08:30→22:08)
[2018-09-24] MEDS: oxyCODONE TAB* 5 MG TAB PO PRN ×2 (08:30→19:38)
[2018-09-24] MEDS: Magnesium Hydroxide LIQ* 30 ML UDC PO SCH ×2 (08:30→22:08)
--- NOTE | 2018-09-24 09:59 | PN ---
Subjective Date of Service: 09/24/18 Interval History: Events from this AM reviewed Develop LH described as head foggy, chest discomfort described as felt "thick" in the setting of PT today that was notable for more pain than yesterday all resolved with rest in under 8 minutes Otherwise stable without complaints since yesterday. Objective Active Medications: Acetaminophen (Tylenol Tab*) 650 mg PO Q8H PRN PRN Reason: PAIN OR TEMPERATURE Albuterol (Ventolin Hfa Inhaler*) 2 puff INH Q6H PRN PRN Reason: WHEEZING Bisacodyl (Dulcolax Supp*) 10 mg OH DAILY PRN PRN Reason: constipation Cyclobenzaprine HCl (Flexeril Tab*) 5 mg PO TID PRN PRN Reason: SPASMS Last Admin: 09/24/18 00:38 Dose: 5 mg Diphenhydramine HCl (Benadryl Iv*) 25 mg IV Q6H PRN PRN Reason: itching Docusate Sodium (Colace Cap*) 100 mg PO BID [facility] Last Admin: 09/24/18 08:30 Dose: 100 mg Enoxaparin Sodium (Lovenox(*)) 40 mg SUBCUT Q24H [facility] Last Admin: 09/23/18 12:35 Dose: 40 mg Lactated Ringer's (Lactated Ringers 1000 Ml Bag*) 1,000 mls @ 100 mls/hr IV PER RATE [facility] Last Admin: 09/23/18 06:50 Dose: 100 mls/hr Magnesium Hydroxide (Milk Of Magnesia Liq*) 30 ml PO BID [facility] Last Admin: 09/24/18 08:30 Dose: 30 ml Magnesium Hydroxide (Milk Of Magnesia Liq*) 30 ml PO Q6H PRN PRN Reason: constipation Morphine Sulfate (Morphine 4 Mg/Ml Vial (1 Ml)) 2 mg IV Q2H PRN PRN Reason: PAIN Last Admin: 09/24/18 00:37 Dose: 2 mg Ondansetron HCl (Zofran Inj*) 4 mg IV Q6H PRN PRN Reason: nausea Last Admin: 09/24/18 09:20 Dose: 4 mg Oxycodone HCl (Roxycodone Tab*) 10 mg PO Q4H PRN PRN Reason: PAIN - SEVERE Last Admin: 09/24/18 08:30 Dose: 10 mg Oxycodone/Acetaminophen (Percocet 5/325 Tab*) 1 tab PO Q4H PRN PRN Reason: PAIN Oxycodone/Acetaminophen (Percocet 5/325 Tab*) 2 tab PO Q4H PRN PRN Reason: PAIN Last Admin: 09/24/18 03:44 Dose: 2 tab Polyethylene Glycol/Electrolytes (Miralax*) 17 gm PO DAILY PRN PRN Reason: Constipation Last Admin: 09/24/18 08:37 Dose: 17 gm Propranolol HCl (Inderal La Cap*) 60 mg PO QAM HUI Last Admin: 09/24/18 08:29 Dose: Not Given Tramadol HCl (Ultram*) 50 mg PO Q6H PRN PRN Reason: PAIN - MODERATE Last Admin: 09/23/18 23:11 Dose: 50 mg Vital Signs - 8 hr 09/24/18 09/24/18 09/24/18 01:58 03:26 03:44 Temperature 98.4 F 99.2 F Pulse Rate 72 67 Respiratory 16 18 16 Rate Blood Pressure 104/61 98/60 (mmHg) O2 Sat by Pulse 95 94 Oximetry 09/24/18 09/24/18 09/24/18 04:20 07:15 07:41 Temperature 98.5 F Pulse Rate 68 Respiratory 16 16 Rate Blood Pressure 107/61 (mmHg) O2 Sat by Pulse 94 95 Oximetry 09/24/18 09/24/18 09/24/18 08:00 08:28 08:30 Temperature Pulse Rate 62 Respiratory 18 Rate Blood Pressure 92/58 (mmHg) O2 Sat by Pulse 96 Oximetry 09/24/18 09/24/18 09/24/18 09:27 09:30 09:32 Temperature Pulse Rate 75 73 Respiratory 10 Rate Blood Pressure 75/49 84/56 98/50 (mmHg) O2 Sat by Pulse 96 Oximetry Oxygen Devices in Use Now: None, Nasal Cannula Appearance: NAD, sitting in chair Eyes: No Scleral Icterus, PERRLA Ears/Nose/Mouth/Throat: NL Teeth, Lips, Gums, Clear Oropharnyx Neck: NL Appearance and Movements; NL JVP, Trachea Midline Respiratory: Symmetrical Chest Expansion and Respiratory Effort, Clear to Auscultation Cardiovascular: RRR Abdominal: NL Sounds; No Tenderness; No Distention, No Hepatosplenomegaly Extremities: - - left leg wrapped, nv intact distally Neurological: Alert and Oriented x 3 Result Diagrams: 09/24/18 05:09 09/23/18 06:02 Assess/Plan/Problems-Billing Assessment: Pt is a 67 yom with PMHx of HTN s/p L [place] 09/22 - Patient Problems (1) Light-headed feeling Comment: Associated with chest discomfort x 8 minutes In setting of relative low blood pressure after resumption of all home medications and pain with PT EKG non-ischemic Monitor If recurs will trend trops and repeat EKG but would not get LHC at this time post-op day 2 (2) Hypertension Comment: -Pt received all home medications this 09/23 and was slightly hypotensive -D/c valsartan, HCTZ -held propranol 09/24 - c/w hold parameters (3) Status post total hip replacement, left Comment: -Management per ortho team (4) DVT prophylaxis Comment: -Per ortho: Lovenox Status and Disposition: Inpatient. Discharge per ortho team.
[2018-09-24] MEDS: traMADol TAB* 50 MG PO PRN (12:03)
[2018-09-24] MEDS: Enoxaparin(*) 40 MG/0.4 ML SYR SUBCUT SCH (12:04)
--- NOTE | 2018-09-24 12:04 | PN ---
Progress Note - Progress Note Date of Service: 09/24/18 SOAP: Subjective: []Pt seen and examined at bedside. He feels well without CP, SOB, dizziness or nausea. Hip pain is well controlled. This morning he has a short episode lasting roughly 5 minutes of feeling short of breath with chest "thickness". His O2 sat remained stable, he was hypotensive, an EKG was done which showed no ischemic changes, he was evaluated by the medical team. Objective: []General: Well appearing, NAD LLE: Left hip dressing changed, incision CDI, thigh is soft, DF/PF intact, DP2+ , sensation intact to light touch distally Calves supple and nontender without erythema, edema or palpable cords Assessment: []LTH 09/22 Dr Kahn Plan: []WBAT PT/OT Posterior hip precautions Lovenox bridge to coumadin. Coumdin 4 mg today Anticipate DC home tomorrow Vital Signs Temp 98.5 F 09/24/18 07:41 Pulse 73 09/24/18 09:32 Resp 16 09/24/18 10:35 BP 98/50 09/24/18 09:32 Pulse Ox 96 09/24/18 09:27 Intake & Output 09/23/18 09/24/18 09/24/18 18:59 06:59 18:59 Intake Total 1255 830 360 Output Total 875 1150 200 Balance 380 -320 160 Intake: IV Fluids 670 LR 615 cefazolin 55 IVPB 55 cefazolin 55 Oral 530 830 360 Output: Urine 875 1150 200 Other: # Bowel Movements 0 Laboratory Last Values Hgb 10.2 g/dL (14.0-18.0) L 09/24/18 05:09 Hct 30 % (36-46) L 09/24/18 05:09 Plt Count 244 10^3/uL (150-450) 09/24/18 05:09 MPV 7.1 fL (7.4-10.4) L 09/24/18 05:09 INR (Anticoag Therapy) 1.54 (0.77-1.02) H 09/24/18 05:09 Sodium 138 mmol/L (135-145) 09/23/18 06:02 Potassium 3.9 mmol/L (3.5-5.0) 09/23/18 06:02 Chloride 101 mmol/L (101-111) 09/23/18 06:02 Carbon Dioxide 31 mmol/L (22-32) 09/23/18 06:02 Anion Gap 6 mmol/L (2-11) 09/23/18 06:02 BUN 27 mg/dL (6-24) H 09/23/18 06:02 Creatinine 1.06 mg/dL (0.67-1.17) 09/23/18 06:02 Est GFR ( Amer) 84.3 (>60) 09/23/18 06:02 Est GFR (Non-Af Amer) 69.7 (>60) 09/23/18 06:02 BUN/Creatinine Ratio 25.5 (8-20) H 09/23/18 06:02 Glucose 155 mg/dL (70-100) H 09/23/18 06:02 Calcium 8.6 mg/dL (8.6-10.3) 09/23/18 06:02
[2018-09-24] MEDS ORDERED: Warfarin TAB(*) 4 MG PO ONE (17:00)
[2018-09-25] MEDS: oxyCODONE TAB* 5 MG TAB PO PRN (00:58)
[2018-09-25 06:04] LABS: Hematocrit 31 % (36-46); Hemoglobin 10.3 g/dL (14.0-18.0); Mean Platelet Volume 7.2 fL (7.4-10.4); Platelet Count 266 10^3/uL (150-450)
[2018-09-25 06:09] LABS: INR 2.07 (0.77-1.02)
[2018-09-25] MEDS: oxyCODONE/Acetamin 5/325 MG* TAB PO PRN ×2 (07:08→11:07)
[2018-09-25] MEDS: Docusate CAP* 100 MG PO SCH (10:00)
[2018-09-25] MEDS: Magnesium Hydroxide LIQ* 30 ML UDC PO SCH (10:00)
[2018-09-25] MEDS: Propranolol LA CAP* 60 MG PO SCH (10:09)
--- NOTE | 2018-09-25 10:48 | PN ---
Progress Note - Progress Note Date of Service: 09/25/18 SOAP: Subjective: []Patient seen at bedside this am. He dienies SOB, CP, palpitations or dizziness. He is ready to go home this afternoon. Objective: [] Vital Signs Temp 99.3 F 09/25/18 07:58 Pulse 85 09/25/18 07:58 Resp 16 09/25/18 10:15 BP 121/70 09/25/18 07:58 Pulse Ox 95 09/25/18 07:59 Intake & Output 09/24/18 09/25/18 09/25/18 18:59 06:59 18:59 Intake Total 760 1850 240 Output Total 500 600 Balance 260 1250 240 Intake: Oral 760 1850 240 Output: Urine 500 600 Other: Date of Last Bowel 09/24/18 Movement # Bowel Movements 1 1 Estimated Stool Amount Medium Large Laboratory Results - last 24 hr 09/25/18 09/25/18 05:35 05:35 Hgb 10.3 L Hct 31 L Plt Count 266 MPV 7.2 L INR (Anticoag Therapy) 2.07 H Left hip incision is benign calf NT and soft +DF left ankle sensation and circulation intact distally Assessment: []s/p LTH POD #3 Plan: []WBAT LLE posterior hip precautions Eliquis 2.5 BID for 1 month post op follow up in 10-14 days as scheduled with Dr. Kahn
[2018-09-25 11:04] VITALS: BP 109/67
[2018-09-25] MEDS: Enoxaparin(*) 40 MG/0.4 ML SYR SUBCUT SCH (11:08)
--- NOTE | 2018-09-25 15:49 | DS ---
DISCHARGE SUMMARY: DATE OF ADMISSION: 09/22/18 DATE OF DISCHARGE: 09/25/18 ATTENDING PHYSICIAN: Sabra Kahn MD.* (DICTATED BY QUITA MONTANEZ) ADMISSION DIAGNOSIS: Severe end-stage degenerative osteoarthritis, left hip joint. DISCHARGE DIAGNOSIS: Severe end-stage degenerative osteoarthritis, left hip joint. SURGERY PERFORMED: Left total hip arthroplasty. HOSPITAL COURSE: The patient is a 67-year-old male with years of left hip pain. He failed conservative management with antiinflammatories, pain medications, intraarticular cortisone injection, and physical therapy. Due to the decreased quality of life and increased pain, he elected to proceed with left total hip arthroplasty. He was taken to the operating room on the day of 09/22/18 for the aforementioned procedure. He tolerated the procedure well and left the operating room in stable condition. Postoperatively, he progressed satisfactorily with his physical therapy and occupational therapy goals, bearing weight as tolerated on the left lower extremity. Postoperative day #2, he complained of some chest "thickness." The medical team evaluated him. He had an EKG, which showed no ischemic changes or abnormalities. On 09/25/18, he felt well. He did not have any chest pain, dizziness, shortness of breath, or palpitations. He was found to be medically and orthopedically stable for discharge to home on 09/25/18. CONDITION ON DISCHARGE: Temperature 97.8, pulse 86, respiratory rate 18, O2 saturation 97% on room air, and blood pressure 109/67. INR 2.07. PLAN: The patient will be discharged to home on 09/25/18. He will continue to bear weight as tolerated on the left lower extremity. Posterior hip precautions will remain. He may participate in physical therapy. He will continue with Coumadin for DVT prophylaxis. He was provided with 2 mg tablets with instructions to take 2 mg today, 09/25/18; 2 mg on 09/26/18; and 2 mg on 09/27/18. He will have a repeat INR blood draw on Friday, 09/28 with dosages from the office to follow. He was provided prescriptions of oxycodone 10 mg 1 p.o. q.4 hours p.r.n. pain, #56. Also provided with a prescription of Flexeril 10 mg 1 p.o. t.i.d. p.r.n. muscle spasms as well as the Coumadin 2 mg tablets, #90. He will follow up as scheduled with Dr. Kahn in the office in roughly 10 to 14 days. All questions were answered. QUITA MONTANEZ [id number]/[facility] #: [id number] TOR[place]
== END 2018-09-25 12:45 | disposition home health service (06) | DRG 301 ==
LOC: AA 10:06 → EDSTATUS 14:00 → SSU 20:01
PROVIDERS: ADMIT Orthopaedic Surgery Adult Reconstructive Orthopaedic Surgery; ATTEND Orthopaedic Surgery Adult Reconstructive Orthopaedic Surgery
PROC: 0SRB04A Replacement of Left Hip Joint with Ceramic on Polyethylene Synthetic Substitute, Uncemented, Open Approach (ICD-10-PCS; principal; 2018-09-22 13:00)
DX: M16.12 Unilateral primary osteoarthritis, left hip (principal); I10 Essential (primary) hypertension; M25.752 Osteophyte, left hip; F32.9 Major depressive disorder, single episode, unspecified; F41.9 Anxiety disorder, unspecified; E66.9 Obesity, unspecified; I95.9 Hypotension, unspecified; R42 Dizziness and giddiness; Z72.89 Other problems related to lifestyle; Z68.29 Body mass index [BMI] 29.0-29.9, adult
CPT/HCPCS: 36415; 80048; 85014; 85018; 85049; 85610; 93005; A9270-GY; C1713; C1776; G8987-GO-CI; G8988-GO-CI; G8989-GO-CI; J0690; J1100; J1650; J2250; J2270; J2405; J2704; J2795; J3010

== ENCOUNTER 2018-09-29 21:45 | Observation (INO) | payer BC ==
--- NOTE | 2018-09-29 23:33 | ED ---
Complex/Multi-Sys Presentation - HPI Summary HPI Summary: 67-year-old male presents with shortness of breath today. He is concerned that he has a blood clot. He just had recent surgery on his left hip. He states that stays been having a cough and has been more short of breath. He denies any SOB currently. He states that PT came to evaluate today noticed that his left knee is swollen. He states he's been in pain from the hip. He has been taking the normal pain medication. He is requiring less pain medication today. Family states that she was little bit altered earlier. He was acting confused and saying random stuff that was not his normal. he is back to normal mental status now. He denies any headache. He states that he has not been moving much due to the pain. He is also concerning his blood clots and does not want to move. He is currently on Coumadin after the surgery. Surgery was done a week ago by Dr. Kahn. He also been having pain on the right side of his thoracic back today. No family history of blood clots. He is nonsmoker. Has history of high blood pressure and asthma. No urinary symptoms. he does state that urine has been darker. No fevers. No loss of bowel or bladder. No saddle anesthesias. No numbness or tingling. does drink ETOH but has not drank any recently in the past month. - History Of Current Complaint Chief Complaint: EDBackInjuryPain Time Seen by Provider: 09/29/18 22:31 - Allergies/Home Medications Allergies/Adverse Reactions: Allergies Allergy/AdvReac Type Severity Reaction Status Date / Time No Known Allergies Allergy Verified 09/22/18 10:44 PMH/Surg Hx/FS Hx/Imm Hx Endocrine/Hematology History: Reports: Hx Anticoagulant Therapy - post surgery Denies: Hx Diabetes Cardiovascular History: Reports: Hx Hypertension - on meds Denies: Hx Pacemaker/ICD, Other Cardiovascular Problems/Disorders Respiratory History: Reports: Hx Asthma - CHILD History: Denies: Hx Renal Disease Musculoskeletal History: Reports: Hx Arthritis - ALL OVER, Other Musculoskeletal History - Right ankle bone spur Sensory History: Reports: Hx Contacts or Glasses Denies: Hx Hearing Aid Opthamlomology History: Reports: Hx Contacts or Glasses Neurological History: Denies: Other Neuro Impairments/Disorders Psychiatric History: Reports: Hx Anxiety, Hx Depression Denies: Hx Panic Disorder, Other Psychiatric Issues/Disorders - Surgical History Surgery Procedure, Year, and Place: DISCS 1 AND 2 REMOVED FROM BACK 1978, [place]. ROTATOR CUFF RIGHT SHOULDER 2009, [facility] [place]. quad right 2012, [facility] [place] Hx Anesthesia Reactions: No Infectious Disease History: No Infectious Disease History: Denies: Hx Clostridium Difficile, Hx Hepatitis, Hx Human Immunodeficiency Virus (HIV), Hx of Known/Suspected MRSA, Hx Shingles, Hx Tuberculosis, History Other Infectious Disease, Traveled Outside the [place] in Last 30 Days - Family History Known Family History: Positive: None Family History: R & n/C - Social History Alcohol Use: Weekly Alcohol Amount: 2-3 Hx Substance Use: No Substance Use Type: Reports: None Hx Tobacco Use: No Smoking Status (MU): Never Smoked Tobacco Have You Smoked in the Last Year: No Review of Systems Negative: Fever Negative: Chest Pain Positive: Shortness Of Breath, Cough Negative: Abdominal Pain Positive: Myalgia - thoracic back pain, left hip pain Neurological: Other - confusion per family All Other Systems Reviewed And Are Negative: Yes Physical Exam Triage Information Reviewed: Yes Vital Signs On Initial Exam: Initial Vitals Temp Pulse Resp BP Pulse Ox 99.3 F 98 16 144/79 98 09/29/18 21:59 09/29/18 21:59 09/29/18 21:59 09/29/18 21:59 09/29/18 21:59 Vital Signs Reviewed: Yes Appearance: Positive: Well-Appearing Skin: Positive: Other - healing laceration to left hip Head/Face: Positive: Normal Head/Face Inspection Eyes: Positive: Normal, Conjunctiva Clear ENT: Positive: Pharynx normal Neck: Positive: Other: - nontender neck Respiratory/Lung Sounds: Positive: Clear to Auscultation, Breath Sounds Present , Other - no midline tenderness thoracic back, tenderness over lower right scapula Cardiovascular: Positive: Normal, RRR Abdomen Description: Positive: Nontender, Soft Bowel Sounds: Positive: Present Musculoskeletal: Positive: Strength/ROM Intact - left hip, Other - good pulses, sensation grossly intact. Negative: Edema Left Neurological: Positive: Sensory/Motor Intact, Alert, Oriented to Person Place, Time, CN Intact II-III Psychiatric: Positive: Normal Diagnostics - Vital Signs Vital Signs Temp Pulse Resp BP Pulse Ox 09/29/18 21:59 99.3 F 98 16 144/79 98 - Laboratory Result Diagrams: 09/29/18 23:34 09/29/18 23:34 Lab Statement: Any lab studies that have been ordered have been reviewed, and results considered in the medical decision making process. - CT brain CT Interpretation Completed By: Radiologist Summary of CT Findings: IMPRESSION: 1. No acute findings. cta CT Interpretation Completed By: Radiologist Summary of CT Findings: IMPRESSION: 1. No evidence of acute pulmonary embolic disease. 2. No pulmonary consolidation. No pneumothorax or pleural effusion. 3. Ectasia of the ascending aorta. Recommend followup CT scan of the thoracic. spine in one year. 4. Areas of increased density in the dorsal aspect of the spinal canal in the. mid to lower thoracic spine. Consider MRI of the thoracic spine with contrast. 5. Multiple old left lateral rib fractures. - Ultrasound No standard instances Ultrasound Interpretation Completed By: Radiologist Summary of Ultrasound Findings: IMPRESSION: No acute findings. No evidence of deep vein thrombosis. - EKG No standard instances Cardiac Rate: NL EKG Rhythm: Sinus Rhythm EKG Comparison: No Significant Change Summary of EKG Findings: sinus rhythm Re-Evaluation - Re-Evaluation First Eval Re-Evaluation Time: 01:20 Comment: pain denies any abdominal pain, neg meredith sign Complex Multi-Symp Course/Dx Course Of Treatment: 67 year old male status post left hip replacement a week ago presents with confusion, SOB, and back pain today. Per family he was confused before but is not back to normal mental status. No weakness. No difficulty in speech. No numbness or tingling. He admits to cough but no chest pain. Is on warfarin post surgery. Noticed increase swelling left leg that has resolved. Also has thoracic back pain on right side of back. No midline tenderness. Noticed urine has been dark. No abdominal pain, n/v or fever. on exam has a normal neuro exam. Incision is clean and dry and intact on left hip. Has point tenderness near right lower scapular. no midline tenderness. Tenderness over left hip. No edema noted. Neurovascular intact. wbc normal. crp elevated. anemia is consistent with previous results. Renal function is normal. Sodium chloride a little low. LFTs are elevated. Troponin is 0.04 x2. EKG shows sinus rhythm. ultrasound left leg normal. discussed case with dr arambula. dr arambula did bedside ultrasound and no obvious gallbladder wall thickening but will need offical ultrasound in morning. CT brain normal. CTA no PE and also shows area of increased density in dorsal aspect of spinal canal consider MRI. discussed case with dr grande. - Diagnoses Differential Diagnoses/HQI/PQRI: CVA, Metabolic Abnormality, Urinary Tract Infection Provider Diagnoses: LFT elevation, Shortness of breath, Back pain, Left hip pain Discharge - Sign-Out/Discharge Documenting (check all that apply): Patient Departure - Discharge Plan Condition: Stable Disposition: ADMITTED TO [facility] Referrals: Ryan Rothman MD [Primary Care Provider] - - Billing Disposition and Condition Condition: STABLE Disposition: Admitted to [facility]
[2018-09-29 23:39] LABS: Urine Appearance Clear; Urine Color Yellow
[2018-09-29 23:40] LABS: Urine Bilirubin Negative (Negative); Urine Blood Negative (Negative); Urine Glucose Negative (Negative); Urine Ketones Negative (Negative); Urine Nitrite Negative (Negative); Urine Protein Negative (Negative); Urine Specific Gravity 1.005 (1.010-1.030); Urine Urobilinogen Negative (Negative)
[2018-09-29 23:49] LABS: ABS Basophils 0.1 10^3/ul (0-0.2); ABS Eosinophils 0.3 10^3/ul (0-0.6); ABS Lymphocytes 0.9 10^3/ul (1.0-4.8); ABS Neutrophils 8.2 10^3/ul (1.5-7.7); ABS Nucleated RBC 0 10^3/ul; Eosinophil % 3.1 %; Hematocrit 29 % (36-46); Hemoglobin 9.8 g/dL (14.0-18.0); Lymphocyte % 8.4 %; Mean Corpuscular HGB Conc 34 g/dL (31-36); Mean Corpuscular Hemoglobin 29 pg (27-31); Mean Corpuscular Volume 87 fL (80-94); Mean Platelet Volume 6.9 fL (7.4-10.4); Nucleated Red Blood Cells % 0; Platelet Count 460 10^3/uL (150-450); Red Blood Count 3.35 10^6 /uL (4.18-5.48); Red Cell Distribution Width 15 % (10.5-15); White Blood Count 10.6 10^3/uL (3.5-10.8)
[2018-09-30 00:01] LABS: ALT 113 U/L (7-52); AST 127 U/L (13-39); Albumin 3.3 g/dL (3.2-5.2); Alkaline Phosphatase 190 U/L (34-104); Anion Gap 9 mmol/L (2-11); BUN/Creatinine Ratio 22.4 (8-20); Blood Urea Nitrogen 17 mg/dL (6-24); C Reactive Protein 306.34 mg/L (<8.01); CO2 Carbon Dioxide 25 mmol/L (22-32); Calcium 8.9 mg/dL (8.6-10.3); Chloride 97 mmol/L (101-111); EGFR African American 123.8 (>60); EGFR Non-African American 102.3 (>60); Globulin 3.3 g/dL (2-4); Glucose 116 mg/dL (70-100); Sodium 131 mmol/L (135-145); Total Protein 6.6 g/dL (6.4-8.9)
[2018-09-30 00:05] LABS: Troponin I 0.04 ng/mL (<0.04)
[2018-09-30] MEDS ORDERED: Iohexol 300* (CONTRAST) 10 ML SDV IV ONE (00:05)
[2018-09-30] MEDS ORDERED: NS 0.9% 1000 ML** 1,000 ML IV ONE (00:09)
[2018-09-30 01:04] LABS: INR 1.88 (0.77-1.02)
[2018-09-30 01:24] LABS: Troponin I 0.04 ng/mL (<0.04)
[2018-09-30] MEDS ORDERED: Morphine 4 MG/ML VIAL (1 ml) 4 MG/ML VIAL IV ONE (01:29)
--- NOTE | 2018-09-30 01:42 | ED ---
Progress - Progress Note Progress Note: I supervised the PA and performed a history and physical exam. History: Patient is s/p left hip replacement with orthopedics. He reports some pain in his right posterior shoulder and has felt ill. physical exam: no tenderness of the RUQ, clear lungs, and normal breathing. Chest CT is pending. Bedside US performed by me revealed no gallstones, no wall thickening, no biliary tree dilation. Plan: LFT and troponin elevations, abnl CT chest showing possible spinal issue - - therefore patient will require admission to Dr. Medellin. Course/Dx - Diagnoses Provider Diagnoses: LFT elevation, Shortness of breath, Back pain, Left hip pain Discharge - Sign-Out/Discharge Documenting (check all that apply): Patient Departure - Admit Patient Received Moderate/Deep Sedation with Procedure: No - Discharge Plan Condition: Fair Disposition: ADMITTED TO [facility] - Billing Disposition and Condition Condition: FAIR Disposition: Admitted to [facility] - Attestation Statements Document Initiated by Devange: Yes Documenting Scribe: Leslie Gutierrez Provider For Whom Amada is Documenting (Include Credential): Eloy Lloyd MD Scribe Attestation: Leslie An, scribed for Eloy Lloyd MD on 09/30/18 at 0353. Scribe Documentation Reviewed: Yes Provider Attestation: The documentation as recorded by the Leslie clark accurately reflects the service I personally performed and the decisions made by , Eloy Lloyd MD Status of Scribe Document: Viewed
[2018-09-30 01:55] LABS: Creatine Kinase 66 U/L (10-223)
[2018-09-30] MEDS ORDERED: Albuterol HFA INHALER* 8 gm MDI INH PRN (02:31)
[2018-09-30] MEDS ORDERED: Cyclobenzaprine TAB* 10 MG PO PRN (02:31)
[2018-09-30] MEDS ORDERED: Enoxaparin(*) 40 MG/0.4 ML SYR SUBCUT SCH (03:00)
[2018-09-30] MEDS: oxyCODONE TAB* 5 MG TAB PO PRN ×4 (03:38→19:19)
[2018-09-30 05:49] LABS: ABS Basophils 0.1 10^3/ul (0-0.2); ABS Eosinophils 0.4 10^3/ul (0-0.6); ABS Lymphocytes 0.8 10^3/ul (1.0-4.8); ABS Monocytes 1.1 10^3/ul (0-0.8); ABS Neutrophils 8.9 10^3/ul (1.5-7.7); ABS Nucleated RBC 0 10^3/ul; Eosinophil % 3.4 %; Hematocrit 29 % (36-46); Hemoglobin 9.5 g/dL (14.0-18.0); Mean Corpuscular HGB Conc 33 g/dL (31-36); Mean Corpuscular Hemoglobin 29 pg (27-31); Mean Corpuscular Volume 87 fL (80-94); Mean Platelet Volume 6.9 fL (7.4-10.4); Nucleated Red Blood Cells % 0; Platelet Count 461 10^3/uL (150-450); Red Blood Count 3.34 10^6 /uL (4.18-5.48); Red Cell Distribution Width 15 % (10.5-15); White Blood Count 11.2 10^3/uL (3.5-10.8)
[2018-09-30 06:13] LABS: Albumin 3.1 g/dL (3.2-5.2); BUN/Creatinine Ratio 22.9 (8-20); Calcium 8.8 mg/dL (8.6-10.3); EGFR African American 136.1 (>60); EGFR Non-African American 112.5 (>60); Globulin 3.2 g/dL (2-4); Potassium 3.8 mmol/L (3.5-5.0); Total Protein 6.3 g/dL (6.4-8.9)
[2018-09-30 06:22] LABS: Troponin I 0.04 ng/mL (<0.04)
[2018-09-30] MEDS ORDERED: Albuterol 2.5 MG/3 ML NEB.SOL* (0.083%) INH PRN (06:37)
--- NOTE | 2018-09-30 09:31 | ADMNOTE ---
Subjective Date of Service: 09/30/18 Interval History: HISTORY AND PHYSICAL PCP: Hilario CC: scapula pain HPI: Patient is a 67 year old man who had a LT hip total arthroplasty on 09/22, who presented to ER overnight with RT scapular pain that began 2 days after surgery, and worsened today. He initially thought he had strained a muscle hoisting himself up for PT/rehab post-op, but pain in scapula has worsened, become respirophasic, and raised a concern of pulmonary embolism. He has been taking warfarin since surgery for DVT propylaxis. He also had some dyspnea with exertion since surgery, and felt confused last night. He attributed his confusion to taking Vicodin steadily since surgery. 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, never smoked, quit alcohol 18 yrs ago, no drug use Past Medical History: Findings - PMH: hypertension, depression/anxiety, h/o alcohol abuse, asthma as child, overweight; PSH: RT rotator cuff repair, diskectomy, RT quad tendon repair, chest tube in past for traumatic pneumothorax Review of Systems - Measurements Intake and Output: Intake and Output Last 24 Hours 09/28/18 09/29/18 09/30/18 10/01/18 06:59 06:59 06:59 06:59 Intake Total 1240 Balance 1240 Weight 104.326 kg Intake: IV Fluids 1000 Oral 240 - Review of Systems Constitutional Symptoms: Positive: Fatigue Negative: Fever, Night Sweats Dermatology: Positive: Normal HEENT: Positive: Normal Eyes: Positive: Normal Thyroid: Positive: Normal Pulmonary: Positive: Cough, Wheezing, Shortness of Breath, Asthma, Exercise Intolerance Cardiology: Positive: Chest Pain, Shortness of Breath Negative: Edema, Orthopnoea Gastroenterology: Positive: Normal Genital - Urinary: Positive: Normal Genitourinary - Male: Positive: Prostatism, Other Musculoskeletal: Positive: Joint Pain, Other - chronic LT knee effusion, denies gout Endocrinology: Positive: Normal Hematologic/Lymphatic: Positive: Anemia, Use of Anticoagulant Neurology: Positive: Normal Psychiatry: Positive: Depression Allergic/Immunologic: Positive: Athsma Objective Active Medications: Albuterol (Ventolin Hfa Inhaler*) 2 puff INH Q6H PRN PRN Reason: WHEEZING Cyclobenzaprine HCl (Flexeril Tab*) 5 mg PO TID PRN PRN Reason: SPASMS Hydrochlorothiazide (Hydrodiuril Tab*) 12.5 mg PO DAILY [facility] Oxycodone HCl (Roxycodone Tab*) 10 mg PO Q4H PRN PRN Reason: PAIN - SEVERE Last Admin: 09/30/18 03:38 Dose: 10 mg Propranolol HCl (Inderal La Cap*) 60 mg PO QAM [facility]UI Valsartan (Diovan Tab*) 160 mg PO QAM [facility] Warfarin Sodium (Coumadin Tab(*)) 2 mg PO DAILY [facility]; Protocol Vital Signs - 8 hr 09/30/18 09/30/18 09/30/18 01:42 01:43 02:54 Temperature 37.1 C Pulse Rate 90 108 Respiratory 20 20 17 Rate Blood Pressure 168/100 104/65 (mmHg) O2 Sat by Pulse 99 98 Oximetry 09/30/18 09/30/18 09/30/18 02:57 03:20 03:38 Temperature 37.2 C Pulse Rate 78 Respiratory 16 20 Rate Blood Pressure 143/87 148/86 (mmHg) O2 Sat by Pulse 97 Oximetry Oxygen Devices in Use Now: None Appearance: alert, no distress Eyes: No Scleral Icterus Ears/Nose/Mouth/Throat: NL Teeth, Lips, Gums Neck: NL Appearance and Movements; NL JVP, No Thyroid Enlargement, Masses Respiratory: Symmetrical Chest Expansion and Respiratory Effort, Clear to Auscultation, - - spine: no tenderness midline Cardiovascular: NL Sounds; No Murmurs; No JVD, RRR Abdominal: NL Sounds; No Tenderness; No Distention, No Hepatosplenomegaly Extremities: No Edema, No Clubbing, Cyanosis, - - scapula RT: no tenderness, no erythema, LT hip ROM normal post-op Skin: No Rash or Ulcers Neurological: Alert and Oriented x 3, NL Muscle Strength and Tone Lines/Tubes/Other Access: Clean, Dry and Intact Peripheral IV Nutrition: Taking PO's Result Diagrams: 09/30/18 05:28 09/30/18 05:28 Additional Lab and Data: Laboratory Tests 09/29/18 09/30/18 09/30/18 23:34 00:53 00:53 INR (Anticoag Therapy) 1.88 H APTT 26.0 Glucose 116 H Total Bilirubin 1.20 H AST 127 H ALT 113 H Alkaline Phosphatase 190 H Total Creatine Kinase 66 Troponin I 0.04 H* 0.04 H* C-Reactive Protein 306.34 H Lipase 09/30/18 09/30/18 05:28 05:28 INR (Anticoag Therapy) APTT Glucose 115 H Total Bilirubin AST ALT Alkaline Phosphatase Total Creatine Kinase Troponin I 0.04 H* C-Reactive Protein Lipase Diagnostic Imaging: Venous Doppler LLE: no DVT Head CT: normal CTA Chest: no PE, healed rib fracture, abnormal density thoracic spinal cord, distal portion GB U/S: no biliary or gallbladder pathology EKG Data: NSR, normal axis, early transition, possible lead placement issue, no ischemia Assess/Plan/Problems-Billing Assessment: 67 year old man post-op day 8 from hip replacement, with upper back pain, abnormal signal on T-spine cord, LFT abnormalities - Patient Problems (1) Abnormal CT of thoracic spine Current Visit: Yes Status: Acute Priority: High Code(s): R93.7 - ABNORMAL FINDINGS ON DIAGNOSTIC IMAGING OF PRT MS SYS SNOMED Code(s): 762974447 Comment: -Differential would include neoplasm, spinal abscess, scarring from previous trauma. -Will have MRI of T-spine w/ contrast today. -Discussed with patient (2) Status post total hip replacement, left Current Visit: No Status: Acute Priority: Low Code(s): Z96.642 - PRESENCE OF LEFT ARTIFICIAL HIP JOINT SNOMED Code(s): 376087324742 Comment: -no immediate complications of surgery identified (3) Hepatitis Current Visit: Yes Status: Acute Priority: Medium Comment: -LFTs mildly elevated, differential could include medication effect (acetaminophen,) viral hepatitis, fatty liver disease ([place],) hemochromatosis, cholangitis. -Will hold acetaminophen, repeat LFTS in AM, check ferritin, HepC -Ultrasound shows no biliary obstruction (4) Troponin level elevated Current Visit: Yes Status: Acute Priority: Medium Code(s): R74.8 - ABNORMAL LEVELS OF OTHER SERUM ENZYMES SNOMED Code(s): 863038063 Comment: -Patient has no clear sign of angina, levels of troponin minimally elevated, significance is unclear -Will monitor on telemetry, trend troponins. (5) Anemia Current Visit: Yes Status: Acute Priority: Medium Code(s): D64.9 - ANEMIA , UNSPECIFIED SNOMED Code(s): 965866837 Comment: -Likely post-op anemia, normal blood loss from surgery -Will check iron studies, follow CBC (6) DVT prophylaxis Current Visit: No Status: Acute Code(s): GNH5192 - SNOMED Code(s): 052998106 Comment: -Continue warfarin, check INR daily -Goal INR 2-3 -very high risk, adding SCDs Status and Disposition: inpatient
[2018-09-30] MEDS: Hydrochlorothiazide TAB* 25 MG PO SCH (10:15)
[2018-09-30] MEDS: Propranolol LA CAP* 60 MG PO SCH (10:15)
[2018-09-30] MEDS: Warfarin TAB(*) 2 MG PO SCH (10:15)
[2018-09-30] MEDS: Valsartan TAB* 160 MG PO SCH (10:16)
[2018-09-30 10:50] LABS: Erythrocyte Sed Rate 117 mm/Hr (0-20)
[2018-09-30] MEDS ORDERED: Vancomycin per Pharmacy* NOTE FOLLOW UP SCH (11:00)
[2018-09-30] MEDS ORDERED: Vancomycin(*) 1,250 MG in NS 0.9% 250 ML* 250 ML IVPB ONE (11:45)
[2018-09-30] MEDS ORDERED: Gadoteridol* (CONTRAST) 279.3 MG/ML 10 ML IV ONE (11:52)
[2018-09-30] MEDS: Cefepime 2 GM in Dextrose(*) 2 GM/50 ML BAG IV SCH ×2 (12:19→18:41)
--- NOTE | 2018-09-30 13:52 | PN ---
Subjective Date of Service: 09/30/18 Interval History: Pt c/o R shoulder, scapula pain with seep breathing and movement. "Feels like a pulled muscle", but decided to come inn to get checked to r/o PE. 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, never smoked, quit alcohol 18 yrs ago, no drug use Past Medical History: Findings - PMH: hypertension, depression/anxiety, h/o alcohol abuse, asthma as child, overweight; PSH: RT rotator cuff repair, diskectomy, RT quad tendon repair, chest tube in past for traumatic pneumothorax Objective Active Medications: Albuterol (Ventolin Hfa Inhaler*) 2 puff INH Q6H PRN PRN Reason: WHEEZING Albuterol (Ventolin 2.5 Mg/3 Ml Neb.Amparo*) 2.5 mg INH [id number] AWAKE PRN PRN Reason: SOB/WHEEZING Cyclobenzaprine HCl (Flexeril Tab*) 5 mg PO TID PRN PRN Reason: SPASMS Hydrochlorothiazide (Hydrodiuril Tab*) 12.5 mg PO DAILY [facility] Last Admin: 09/30/18 10:15 Dose: 12.5 mg Cefepime HCl (Maxipime 2 Gm In Dextrose Duplex (*)) 2 gm in 50 mls @ 100 mls/ hr IV Q8H [facility] Last Admin: 09/30/18 12:19 Dose: 100 mls/hr Oxycodone HCl (Roxycodone Tab*) 10 mg PO Q4H PRN PRN Reason: PAIN - SEVERE Last Admin: 09/30/18 09:51 Dose: 10 mg Pharmacy Consult (Vancomycin Per Pharmacy*) 1 note FOLLOW UP .VANC PER PHARMACY [facility] Propranolol HCl (Inderal La Cap*) 60 mg PO QAM [facility] Last Admin: 09/30/18 10:15 Dose: 60 mg Valsartan (Diovan Tab*) 160 mg PO QAM [facility] Last Admin: 09/30/18 10:16 Dose: 160 mg Warfarin Sodium (Coumadin Tab(*)) 2 mg PO DAILY [facility]; Protocol Last Admin: 09/30/18 10:15 Dose: 2 mg Vital Signs - 8 hr 03/27/19 03/27/19 03/27/19 06:15 07:08 09:51 Pulse Rate Respiratory 18 18 16 Rate Blood Pressure (mmHg) O2 Sat by Pulse Oximetry 09/30/18 09/30/18 09:59 12:22 Pulse Rate 97 Respiratory 16 18 Rate Blood Pressure 143/69 (mmHg) O2 Sat by Pulse 97 Oximetry Oxygen Devices in Use Now: None Appearance: 67 yo M in nAD, aAOx3 Eyes: No Scleral Icterus, PERRLA Ears/Nose/Mouth/Throat: NL Teeth, Lips, Gums, Mucous Membranes Moist Neck: NL Appearance and Movements; NL JVP, No Thyroid Enlargement, Masses Respiratory: Symmetrical Chest Expansion and Respiratory Effort, Clear to Auscultation Cardiovascular: NL Sounds; No Murmurs; No JVD, RRR Abdominal: NL Sounds; No Tenderness; No Distention, - - no point tenderness on back palpation Lymphatic: No Cervical Adenopathy Extremities: No Clubbing, Cyanosis, - - left thigh edema, resolving ecchymosis, post op scar healed, no cellulitis, wound dehiscence noted Skin: No Nodules or Sclerosis, - - see above Neurological: Alert and Oriented x 3, NL Muscle Strength and Tone Result Diagrams: 09/30/18 05:28 09/30/18 05:28 Additional Lab and Data: Laboratory Tests 09/29/18 09/30/18 09/30/18 23:34 00:53 00:53 INR (Anticoag Therapy) 1.88 H APTT 26.0 Glucose 116 H Total Bilirubin 1.20 H AST 127 H ALT 113 H Alkaline Phosphatase 190 H Total Creatine Kinase 66 Troponin I 0.04 H* 0.04 H* C-Reactive Protein 306.34 H Lipase 09/30/18 09/30/18 05:28 05:28 INR (Anticoag Therapy) APTT Glucose 115 H Total Bilirubin AST ALT Alkaline Phosphatase Total Creatine Kinase Troponin I 0.04 H* C-Reactive Protein Lipase Diagnostic Imaging: Venous Doppler LLE: no DVT Head CT: normal CTA Chest: no PE, healed rib fracture, abnormal density thoracic spinal cord, distal portion GB U/S: no biliary or gallbladder pathology EKG Data: NSR, normal axis, early transition, possible lead placement issue, no ischemia Assess/Plan/Problems-Billing Assessment: 67 year old man post-op day 8 from hip replacement, with upper back pain, abnormal signal on T-spine cord, LFT abnormalities - Patient Problems (1) Abnormal CT of thoracic spine Comment: -MRI of T-spine w/ contrast shows old hematoma with calcifications. pt noted that he has h/o lumbar soine surgery remotely -Discussed with patient -due to markedly elevated CRP cont on Cafepime/Vanc. awaiting blood cx -ID consulted (2) Anemia Comment: -Likely post-op anemia, normal blood loss from surgery -Will check iron studies, follow CBC (3) Hepatitis Comment: -LFTs mildly elevated, differential could include medication effect ( acetaminophen,) viral hepatitis, fatty liver disease ([place],) hemochromatosis, cholangitis. -Will hold acetaminophen, repeat LFTS in AM, check ferritin, HepC -Ultrasound shows no biliary obstruction (4) Troponin level elevated SNOMED Code(s): 889599059 Comment: -Patient has no clear sign of angina, levels of troponin minimally elevated, significance is unclear -Will monitor on telemetry, trend troponins, check Echo (5) Hypertension Comment: cont valsartan, HCTZ,propranol -controlled (6) Status post total hip replacement, left Comment: -no immediate complications of surgery identified. Dr. Kahn notified about pt' s admission (7) DVT prophylaxis Comment: -Continue warfarin, check INR daily -Goal INR 2-3 -very high risk, adding SCDs Status and Disposition: inpatient
--- NOTE | 2018-09-30 15:22 | ECHO ---
Patient: RYAN RUFFIN [facility] Rec#: [id number] : 1950 Date: 09/30/2018 Age: 67y Height: 188 cm / 74.0 in Weight: 104 kg / 229.2 lbs Sex: M BSA: 2.3 Room#: 440 Admit Date#: 09/30/2018 Type: Inpatient Referring: Maine Panda MD Reading: Alia Cornejo MD Scaffold Worker: Orquidea Vang RDCS CC: Ryan Rothman MD Transthoracic Echocardiogram Indication: Chest pain BP: 148/86 HR: 99 Rhythm: NSR Findings History: ETOH use, s/p left hip replacement 1 week ago, HTN. Technical Comments: The study quality is fair. Completed at 1330. Left Ventricle: The left ventricular chamber size is normal. Mild to moderate concentric left ventricular hypertrophy is observed. Global left ventricular wall motion and contractility are within normal limits. The left ventricle appears hyperdynamic. The estimated ejection fraction is 60-65%. Abnormal left ventricular diastolic filling is observed, consistent with impaired relaxation. Left Atrium: The left atrium is mildly dilated. Right Ventricle: Moderator Band present. The right ventricle is moderately dilated. The right ventricle wall thickness is mildly increased. The right ventricular global systolic function is low normal. Right Atrium: The right atrium is moderately dilated. There is evidence of an atrial septal aneurysm. Aortic Valve: The aortic valve is trileaflet. The aortic valve leaflets are mildly thickened. Systolic excursion of the aortic valve is normal. There is a trace of aortic regurgitation. There is no evidence of aortic stenosis. There is no aortic vegetation present. Mitral Valve: The mitral valve leaflets are mildly thickened. There is trace to mild mitral regurgitation. There is no evidence of mitral stenosis. No vegetation is observed on the mitral valve. Tricuspid Valve: The tricuspid valve leaflets are normal. There is trace tricuspid regurgitation. Unable to estimate the right ventricular systolic pressure. There is no tricuspid stenosis. No vegetation is observed on the tricuspid valve. Pulmonic Valve: The pulmonic valve appears normal. There is a trace pulmonic regurgitation. There is no pulmonic stenosis. No vegetation is observed on the pulmonic valve. Pericardium: There is no significant pericardial effusion. A pericardial fat pad is visualized. Aorta: There is moderate dilatation of the ascending aorta. There is no dilatation of the aortic arch. There is mild dilatation of the aortic root. Pulmonary Artery: The main pulmonary artery is not well visualized. Venous: The inferior vena cava appears normal in size. There is a greater than 50% respiratory change in the inferior vena cava dimension. Conclusions The study quality is fair. Mild to moderate concentric left ventricular hypertrophy is observed. Global left ventricular wall motion and contractility are within normal limits. The left ventricle appears hyperdynamic. The estimated ejection fraction is 60-65%. Abnormal left ventricular diastolic filling is observed, consistent with impaired relaxation. The right ventricle is moderately dilated and wall thickness is mildly increased. The right ventricular global systolic function is low normal. The aortic valve leaflets are mildly thickened with normal function. There is trace to mild mitral regurgitation. There is trace tricuspid regurgitation. Unable to estimate the right ventricular systolic pressure. There is moderate dilatation of the ascending aorta: 4.5 cm. No prior echo available to compare. Measurements Name Value Normal Range RVIDd (AP) 2D 3.2 cm (0.9 - 2.6) RVDdMajor (2D) 5.8 cm (2.2 - 4.4) RVAW (2D) 0.6 cm (0.2 - 0.5) RAd ISD 4CH 5.9 cm (3.4 - 4.9) RA (A4C)W 4.8 cm (2.9 - 4.6) IVSd (2D) 1.3 cm (0.6 - 1) LVPWd (2D) 1.3 cm (0.6 - 1) LVIDd (2D) 4.8 cm (3.6 - 5.4) LVIDs (2D) 3.4 cm - LV FS (2D) 29 % (25 - 45) Aortic Annulus 2.7 cm (1.4 - 2.6) Ao root diameter (2D) 4 cm (2.1 - 3.5) Ascending Ao 4.5 cm (2.1 - 3.4) Aortic arch 2.8 cm (1.8 - 3.4) LA dimension (AP) 2D 4 cm (2.3 - 3.8) LAd ISD 4CH 5.7 cm (2.9 - 5.3) LA ISD 4CH W 4.5 cm (2.5 - 4.5) Name Value Normal Range LA ESV BP (A/L) index 39 ml/m2 - Name Value Normal Range MV E-wave Vmax 0.5 m/sec - MV deceleration time 197 msec - MV A-wave Vmax 0.7 m/sec - MV E:A ratio 0.7 ratio - LV septal e' Vmax 0.05 m/sec - LV lateral e' Vmax 0.1 m/sec - LV E:e' septal ratio 10 ratio - LV E:e' lateral ratio 5 ratio - Name Value Normal Range AV Vmax 1.5 m/sec - AV VTI 24 cm - AV peak gradient 9 mmHg - AV mean gradient 4 mmHg - LVOT Vmax 1 m/sec - LVOT VTI 19 cm - LVOT peak gradient 4 mmHg - LVOT mean gradient 2 mmHg - CATRACHO Vmax 0.8 m/sec - Name Value Normal Range IVC diameter 1.7 cm - Name Value Normal Range PV Vmax 1 m/sec - PV peak gradient 4 mmHg -
[2018-09-30] MEDS ORDERED: Magnesium Hydroxide LIQ* 30 ML UDC PO PRN (17:10)
[2018-09-30] MEDS ORDERED: Polyethylene Glycol 3350* 17 GM PACKET PO PRN (17:10)
[2018-09-30] MEDS ORDERED: Senna TAB PO PRN (17:10)
--- NOTE | 2018-09-30 18:03 | PN ---
Progress Note - Progress Note Date of Service: 09/30/18 SOAP: Subjective: [] Objective: []Hip incision appears CDI without erythema or drainage. There is yellow ecchymosis of the hip without any induration, warmth or fluctuance. Hip is nontender to palpation and he is able to range the hip 0-90 degrees flexion without pain Assessment: [] Plan: []
[2018-09-30] MEDS: Docusate CAP* 100 MG PO SCH (19:19)
[2018-09-30] MEDS ORDERED: Magnesium Hydroxide LIQ* 30 ML UDC PO SCH (21:00)
[2018-09-30] MEDS: Vancomycin(*) 1,250 MG in NS 0.9% 250 ML* 250 ML IVPB SCH (21:33)
[2018-10-01] MEDS: oxyCODONE TAB* 5 MG TAB PO PRN ×2 (00:17→04:45)
[2018-10-01] MEDS: Cefepime 2 GM in Dextrose(*) 2 GM/50 ML BAG IV SCH (03:47)
[2018-10-01] MEDS: Vancomycin(*) 1,250 MG in NS 0.9% 250 ML* 250 ML IVPB SCH (06:17)
--- NOTE | 2018-10-01 07:29 | PN ---
Progress Note - Progress Note Date of Service: 10/01/18 SOAP: Subjective: Pt. is alert, reports R shoulder/scapular pain and L hip pain. Has cough. Objective: Vital Signs: Temp Pulse Resp BP Pulse Ox 97.9 F 84 18 120/67 95 10/01/18 03:05 10/01/18 03:05 10/01/18 06:49 10/01/18 03:05 10/01/18 03:05 Laboratory Results - last 24 hr 09/30/18 05:28 ESR 117 H RUE - min ttp scapula laterally. full rom at shoulder. distally nvi. LLE - incision c/d/i with healing ecchymosis. distally nvi. Assessment: 67 yo M 1 week s/p LTHA with R shoulder pain and difficulty with rehab. He has had leukocytosis as well Plan: L hip is healing well. R shoulder pain likely rotator cuff secondary to rehab. Appreciate Hospitalist care and evaluation. Recommend PT/OT - possible snf on d/c?
[2018-10-01 08:18] LABS: Hematocrit 30 % (36-46); Mean Corpuscular HGB Conc 34 g/dL (31-36); Mean Corpuscular Hemoglobin 29 pg (27-31); Mean Corpuscular Volume 87 fL (80-94); Mean Platelet Volume 6.6 fL (7.4-10.4); Platelet Count 542 10^3/uL (150-450); Red Blood Count 3.43 10^6 /uL (4.18-5.48); Red Cell Distribution Width 15 % (10.5-15); White Blood Count 9.6 10^3/uL (3.5-10.8)
[2018-10-01 08:22] LABS: INR 1.84 (0.77-1.02)
[2018-10-01 08:34] LABS: ALT 77 U/L (7-52); AST 40 U/L (13-39); Albumin 3.1 g/dL (3.2-5.2); Alkaline Phosphatase 167 U/L (34-104); Anion Gap 10 mmol/L (2-11); BUN/Creatinine Ratio 19.7 (8-20); Blood Urea Nitrogen 15 mg/dL (6-24); C Reactive Protein 188.27 mg/L (<8.01); CO2 Carbon Dioxide 28 mmol/L (22-32); Calcium 8.8 mg/dL (8.6-10.3); Chloride 99 mmol/L (101-111); EGFR African American 123.8 (>60); EGFR Non-African American 102.3 (>60); Globulin 3.1 g/dL (2-4); Glucose 110 mg/dL (70-100); Potassium 3.6 mmol/L (3.5-5.0); Sodium 137 mmol/L (135-145); Total Protein 6.2 g/dL (6.4-8.9)
[2018-10-01 08:53] LABS: % Iron Saturation 9 % (15-55); Iron 17 ug/dL (50-212); Total Iron Binding Capacity 199 mcg/dL (250-450); Transferrin 142 mg/dL (203-362)
[2018-10-01 09:14] LABS: Ferritin 400.3 ng/mL (24-336)
[2018-10-01] MEDS: Warfarin TAB(*) 2 MG PO SCH (10:02)
[2018-10-01] MEDS: Docusate CAP* 100 MG PO SCH (10:02)
[2018-10-01] MEDS: Propranolol LA CAP* 60 MG PO SCH (10:03)
[2018-10-01] MEDS: Valsartan TAB* 160 MG PO SCH (10:03)
[2018-10-01] MEDS: Hydrochlorothiazide TAB* 25 MG PO SCH (10:03)
--- NOTE | 2018-10-01 12:38 | CONS ---
CONSULTATION REPORT: DATE OF CONSULT: 10/01/18 REQUESTING PHYSICIAN: Dr. Panda. CONSULTING SERVICE: Infectious Disease. REASON FOR CONSULT: Elevated C-reactive protein and back/shoulder pain. IMPRESSION: 1. Right scapular pain, pleuritic in nature. CT scan shows now PE or pleural process. Could this be referred pain from hepatitis in the setting of his transaminitis and mild elevated bilirubin or musculoskeletal, setting of recent rehab. He does not have a shoulder effusion to suggest infectious process there. There was no abscess seen on the CT scan and no infiltrate either. 2. Recent left hip arthroplasty, incision intact and benign on exam. 3. History of alcohol abuse, though says that he has abstained recently. 4. Spine lesion on CT chest, examined by MRI of the thoracic spine, showed calcified posterior epidural fluid collection and he has no spine tenderness on palpation. I do not believe he has a spine infection based on those findings. There are no associated vertebral body or disk changes. PLAN/RECOMMENDATIONS: We will stop his antibiotics, trend his C-reactive protein off of them and his symptoms off them as well. Should he have any worsening pain, he can always be reevaluated. HISTORY OF PRESENT ILLNESS: This is a 67-year-old man who recently had a left hip arthroplasty. He had been doing rehab for that with some improvement and then started to have right posterior chest pain, which was worse with moving his right arm. He had a CT of the chest that showed no PE or pleural process or infiltrates. He has had no cough. He was admitted on 09/30/18, had an ALT of 113, bilirubin of 1.2. He had a CRP of 300. He had no fever. He was started on broad-spectrum antibiotics, home with vancomycin and cefepime. He had a CT scan that showed a possible epidural abnormality, which was reviewed by MRI as described above. He has had no back pain. He has had scapular pain, which was ongoing until last night. It got much better. He noted that it was worse with moving his right arm, rolling around in bed. No fever since he has been here. His hip incision has been fine and the pain is improving in the hip since surgery. He has no cough, fever, decreased appetite, dysuria, or diarrhea. PAST MEDICAL HISTORY: 1. Osteoarthritis, status post left hip arthroplasty. 2. Hypertension. 3. Depression. 4. Anxiety. 5. Alcohol abuse. 6. Asthma. 7. Status post right rotator cuff repair. 8. Status post diskectomy. 9. Status post right quad tendon repair. 10. History of left chest tube for pneumothorax. MEDICATIONS: 1. Albuterol. 2. Cefepime 2 g every 8 hours. 3. Docusate. 4. Hydrochlorothiazide. 5. Magnesium hydroxide. 6. Oxycodone as needed. 7. Senna. 8. Propranolol. 9. Valsartan. 10. Vancomycin 1200 every 8 hours. 11. Warfarin. ALLERGIES: No known drug allergies. FAMILY HISTORY: No current infections. SOCIAL HISTORY: He lives in [place]. No travel. No sick contacts. Abstaining from alcohol. REVIEW OF SYSTEMS: All negative except as noted above to a 14-point review. PHYSICAL EXAM: Vital Signs: Temperature 37, heart rate 90, respiratory rate 20 , blood pressure 115/66, and oxygen saturation is 94% on room air. General: He is awake, not in distress. Neurologic: He is oriented x3. Follows all commands. Strength is 5/5 in the quadriceps, tibialis anterior, gastrocnemius bilaterally. Sensation intact to light touch in both feet. No lower extremity clonus. HEENT: There is no conjunctival hemorrhage. Neck is supple without mass. Heart is regular rate and rhythm without murmurs, rubs, or gallops. Lungs are clear to auscultation. Abdomen: Soft, nontender, and nondistended. There are bowel sounds present. There is no right upper quadrant tenderness to palpation. Skin: There is no rash or splinter hemorrhage. Musculoskeletal: There is no spine tenderness to palpation. There is no right shoulder effusion. There is right arm pain with extension and elevation. DIAGNOSTIC STUDIES/LAB DATA: White blood cell count 9, hemoglobin 10, platelets 542. Creatinine 0.7, CRP 188. The blood cultures were negative at 24 hours. Please see impressions and recommendations outlined above, which I have discussed with Dr. Panda. [id number]/[facility] #: [id number] TORO
[2018-10-01 14:11] VITALS: BP 125/72
--- NOTE | 2018-10-01 23:07 | DS ---
CC: Dr. Rothman; Dr. Kahn; Dr. Garza; Dr. Duran * DISCHARGE SUMMARY: DATE OF ADMISSION: 09/30/18 DATE OF DISCHARGE: 10/01/18 PRIMARY CARE PROVIDER: Dr. Rothman. DISCHARGE DIAGNOSES: 1. Scapular pain, likely musculoskeletal. 2. Elevated C-reactive protein, likely postoperatively with so far no evidence of infection that was identified. 3. Troponin of 0.04, likely the patient's baseline in a patient who is asymptomatic from a cardiac standpoint and all troponins were at the same value. 4. Abnormal thoracic spine MRI, which showed likely remote epidural hematoma. 5. Elevated liver function tests, possibly due to hypoperfusion. Suspect that the patient could have gotten hypotensive postoperatively. MEDICATIONS AT DISCHARGE: 1. Coumadin increased to 3 mg daily from 2 mg daily due to subtherapeutic INR at 1.8 at discharge. 2. Albuterol inhaler on a p.r.n. basis. 3. Olmesartan/hydrochlorothiazide 20/12.5 one tablet daily. 4. Propranolol 60 mg daily. 5. Flexeril 5 mg t.i.d. p.r.n. 6. Oxycodone 10 mg every 4 hours p.r.n. 7. Ferrous sulfate 325 mg p.o. daily. LABORATORY DATA AND STUDIES PERFORMED DURING THE HOSPITAL STAY: On 09/30/18, white blood cell count was 11.2, hemoglobin of 9.5, hematocrit of 29, and platelets of 461 with ESR of 117. On 10/01/18, white blood cell count of 9.6, hemoglobin of 10.0, hematocrit of 30, and platelets of 542. The patient's INR was 1.84 on the day of discharge. Sodium was 137, potassium 3.6, chloride 99, carbon dioxide 28, BUN 15, creatinine 0.76. Iron studies showed iron low at 17, TIBC of 199, percent iron saturation of 9, transferrin of 142, ferritin of 400. AST of 40, ALT 77, alkaline phosphatase of 167. Troponins were 0.04 x3, unchanged. CPK was 66. C -reactive protein on the day of discharge was 188, on the day of admission was 306. Lipase was 19. Liver function tests on the day of discharge showed bilirubin of 1.2, AST of 127 , ALT of 113, and alkaline phosphatase of 190. By the time of discharge, those were much improved. Urinalysis was unremarkable. Transthoracic echocardiogram obtained on 09/30/18 showed moderate concentric LVH , EF of 60% to 65%, abnormal left ventricular diastolic filling observed consistent with impaired relaxation. Moderate dilatation of the ascending aorta at 4.5 cm with trace to mild mitral regurgitation and trace tricuspid regurgitation. CT angiogram of the chest obtained on 09/29/18, impression: "No evidence of acute pulmonary embolic disease. No pulmonary consolidation. No pneumothorax or pleural effusion. Ectasia of the ascending aorta. Recommended CT followup of the thoracic spine in 1 year. Areas of increased density of the dorsal aspect of the spinal canal in the mid to lower thoracic spine, consider MRI of the thoracic spine with contrast. Multiple old left lateral rib fractures." Thoracic spine MRI obtained on 09/30/18, impression: "The CT findings appear to correspond to partially calcified posterior epidural fluid collection, which may reflect a sequela of remote epidural hematoma. This is likely incidental. Degenerative disk disease and osteoarthritis without significant neural foraminal narrowing or central canal stenosis." Brain CT at admission, impression: "No acute findings. ASPECTS score of 10/10 involving both middle cerebral territories." Venous Doppler study on 09/29/18 showed no evidence of left leg DVT. Gallbladder ultrasound obtained on 09/30/18, impression: "Normal examination of the gallbladder. The pancreas is obscured by overlying bowel gas. Small right renal cyst." CONSULTATIONS DURING THE HOSPITAL STAY: Included Dr. Garza from Infectious Diseases. HOSPITALIZATION COURSE: Ryan Lobato is a 67-year-old male who had elective left hip replacement surgery by Dr. Kahn on 09/22/18. He left the hospital and was discharged to home on 09/25/18. Postoperatively, he stated that he has had significant postoperative pain and he had been trying to use both arms to lift himself from his hospital bed that he rented for the occasion to be able to get up. His noted that the patient had really been not mobile postoperatively at home. The patient started complaining of right shoulder pain and right scapular pain, and when he contacted one of his family members, who have some medical knowledge, they advised him to come into the ED for evaluation to rule out PE. He came in with complaints of right scapular pain and his CTA of the chest showed abnormality of the thoracic spine. In conjunction with that, the patient also had elevated C- reactive protein at over 300. His ESR was 117, his troponin was 0.04, and his liver function tests were in the low 100s. The patient had multiple investigations as mentioned above including gallbladder ultrasound, which was unremarkable. His troponins continued to be at 0.04 and he complained of no chest pain. His transthoracic echocardiogram showed no marked abnormalities. I suspect the patient's troponin of 0.04 is his baseline. His liver function tests were improving with intravenous hydration and suspected that the patient had hypoperfusion during his hospital stay that affected his LFTs. Nevertheless, his hepatitis C antibody is still pending at the time of dictation. His iron studies showed iron deficiency and that is likely postoperative. The patient is going to be placed on ferrous sulfate iron replacement to take home. The patient's INR was slightly subtherapeutic during his hospital stay at 1.8 and his Coumadin was increased from 2 to 3 mg daily. The patient continued to be afebrile throughout his hospital stay and the only complaint was right shoulder pain that by the time of discharge, he actually had bilateral shoulder pain. He never had point tenderness on his back on palpation of the back. The shoulder pain was both positional and worse with the patient attempting to move his shoulders. Dr. Kahn evaluated the patient' s postoperative left hip and did notice any abnormalities that would be concerning for infection. To follow up his abnormal CT angiogram abnormalities of the thoracic spine, an MRI of the T-spine with contrast was obtained on 09/30/18, which showed likely sequelae of prior trauma with epidural hematoma and some calcifications. I discussed the case with Dr. Duran, the neurosurgeon, who reviewed the patient's studies and agreed with the radiologist's impression. Dr. Duran recommended followup MRI of the thoracic spine with contrast in approximately a week to be set up by the patient's primary care provider with the images to be compared with prior ones obtained on 09/30/18. In addition, the patient stated that he did have a trauma when he fell off the stairs last year and he suffered from multiple rib fractures and had left-sided chest tube placed and that is likely what caused for the patient to have epidural hematoma. Dr. Garza saw the patient in evaluation and his evaluation did not reveal any ongoing infection. The patient was initially placed on cefepime and vancomycin when he was initially evaluated for epidural abscess and that was discontinued once the patient's blood cultures turned out negative and his MRI of the spine was resulted as above. The patient's liver function tests were abnormal, but they were improving with intravenous fluids. The patient stated that he had used paracetamol in the past but not recently and definitely not right after surgery. I think that the etiology of the patient's elevation of LFTs is likely hypoperfusion. The patient was noted to be mildly hypotensive postoperatively. The patient also has a history of significant alcohol use, which he was advised to abstain from in the foreseeable future. The patient's hepatitis C antibody is still pending at the time of dictation. At discharge, the patient is recommended to follow up with his primary care provider in 4 to 7 days and follow up with Dr. Kahn as previously scheduled. Dr. Duran can be called if there are further abnormalities or concerns noted to follow up as needed. It is recommended for the patient to be evaluated by Dr. Rothman, his primary care provider, for repeat MRI of the thoracic spine with contrast and to compare it with the prior MRI obtained on 09/30/18 in regards of his chronic epidural hematoma. PHYSICAL EXAMINATION: At the time of discharge, blood pressure of 115/66, heart rate of 90 and regular, respiratory rate 20, oxygen saturation 95% on room air, temperature 98.3. General: The patient is a very pleasant 67-year- old male who is in no acute distress. Alert, awake, and oriented x3. HEENT: Head: Atraumatic, normocephalic. Eyes: Pupils are equal and reactive to light and accommodation. Oropharynx is clear. Mucosa moist. Neck: Supple. No JVD. No bruits bilaterally. Cardiovascular: Regular rate and rhythm. No murmur. Respiratory: Scant wheezes at bilateral bases, otherwise clear. Abdomen: Soft, nontender. Bowel sounds are present in all 4 quadrants. Extremities: There is no edema. Pulses are +2 bilaterally. No clubbing or cyanosis. On neuro evaluation, speech is clear. Cranial nerves II through XII are grossly intact. Motor strength is 5/5 bilaterally. On evaluation of the left postoperative hip, the postoperative incision is healed. There is scant ecchymosis in the area that is resolving. There are no fluctuant masses on palpation. On evaluation of bilateral shoulders and back, the patient has no tenderness on palpation of the entire back. The patient complains of shoulder pain when he moves his bilateral shoulders. There is no evidence of bilateral shoulder effusion on evaluation. Psychiatric Evaluation: Oriented x3 with no evidence of anxiety or depression. Please note that this is a short summary of the patient's hospital stay. Please refer to further medical records for details. TIME SPENT: Approximately 45 minutes was spent on the patient's discharge. [id number]/[facility] #: [id number] TORO
[2018-10-02] MEDS ORDERED: Vancomycin Trough Check NOTE FOLLOW UP ONE (05:30)
[2018-10-02 17:26] LABS: Hepatitis C Antibody Nonreactive (Nonreactive)
== END 2018-10-01 14:35 | disposition home or self-care (01) ==
LOC: ED 21:45 → INTOOBSV 09-30 02:27 → MEDTELE 09-30 02:27
PROVIDERS: ADMIT Internal Medicine; ATTEND Internal Medicine
DX: R06.02 Shortness of breath (principal); M54.9 Dorsalgia, unspecified; M25.552 Pain in left hip; R94.5 Abnormal results of liver function studies; R05 Cough; I10 Essential (primary) hypertension; R93.7 Abnormal findings on diagnostic imaging of other parts of musculoskeletal system; D64.9 Anemia, unspecified; N28.1 Cyst of kidney, acquired; K75.9 Inflammatory liver disease, unspecified; Z96.642 Presence of left artificial hip joint; Z79.01 Long term (current) use of anticoagulants; R07.89 Other chest pain
CPT/HCPCS: 36415; 70450; 71275; 72157; 76705; 80053; 81003; 82550; 82728; 83540; 83550; 83690; 84484; 85025; 85027; 85610; 85652; 85730; 86140; 86803; 87040; 93005; 93306; 96361; 96372; 96374; 96375; 99284; A9270-GY; A9579; G0378; J0692; J2270; J3370; Q9967

== ENCOUNTER 2018-12-09 21:35 | Observation (INO) | payer BC ==
[2018-12-09] MEDS ORDERED: Ondansetron INJ* 2 MG/ML VIAL IV ONE (21:46)
[2018-12-09] MEDS ORDERED: Morphine 4 MG/ML VIAL (1 ml) 4 MG/ML VIAL IV ONE (21:46)
[2018-12-09] MEDS ORDERED: NS 0.9% 1000 ML** 1,000 ML IV ONE (22:35)
--- NOTE | 2018-12-09 23:31 | ED ---
Lower Extremity - HPI Summary HPI Summary: Patient complains of left hip pain status post fall today. History of left hip replacement a weeks ago Dr. Kahn. Patient states he fell on his left side while trying to get up from the couch. Denies any other pain injury or symptoms. Medical history is hypertension. - History of Current Complaint Chief Complaint: EDExtremityLower Stated Complaint: LEFT HIP PAIN PER EMS Time Seen by Provider: 12/09/18 21:41 Hx Obtained From: Patient Mechanism Of Injury: Fall From A Standing Position Onset of Pain: Immediate Onset/Duration: Hours Severity Initially: Severe Severity Currently: Severe Pain Intensity: 9 Pain Scale Used: 0-10 Numeric Timing: Constant Location: Is Discrete @ Character Of Pain: Sharp, Throbbing Associated Signs And Symptoms: Positive: Negative Able to Bear Weight: No - Allergies/Home Medications Allergies/Adverse Reactions: Allergies Allergy/AdvReac Type Severity Reaction Status Date / Time No Known Allergies Allergy Verified 12/09/18 21:45 PMH/Surg Hx/FS Hx/Imm Hx Endocrine/Hematology History: Reports: Hx Anticoagulant Therapy - post surgery Denies: Hx Diabetes Cardiovascular History: Reports: Hx Hypertension - on meds Denies: Hx Pacemaker/ICD, Other Cardiovascular Problems/Disorders Respiratory History: Reports: Hx Asthma - CHILD History: Denies: Hx Renal Disease Musculoskeletal History: Reports: Hx Arthritis - ALL OVER, Other Musculoskeletal History - Right ankle bone spur Sensory History: Reports: Hx Contacts or Glasses Denies: Hx Hearing Aid Opthamlomology History: Reports: Hx Contacts or Glasses EENT History: Denies: Hx Deafness Neurological History: Denies: Other Neuro Impairments/Disorders Psychiatric History: Reports: Hx Anxiety, Hx Depression Denies: Hx Panic Disorder, Other Psychiatric Issues/Disorders - Surgical History Surgery Procedure, Year, and Place: DISCS 1 AND 2 REMOVED FROM BACK 1978, [place]. ROTATOR CUFF RIGHT SHOULDER 2009, [facility] [place]. quad right 2012, [facility] [place] Hx Anesthesia Reactions: No Infectious Disease History: No Infectious Disease History: Denies: Hx Clostridium Difficile, Hx Hepatitis, Hx Human Immunodeficiency Virus (HIV), Hx of Known/Suspected MRSA, Hx Shingles, Hx Tuberculosis, History Other Infectious Disease, Traveled Outside the [place] in Last 30 Days - Family History Known Family History: Positive: None Family History: R & n/C - Social History Alcohol Use: Rare Alcohol Amount: 2-3 Hx Substance Use: No Substance Use Type: Reports: None Hx Tobacco Use: No Smoking Status (MU): Never Smoked Tobacco Have You Smoked in the Last Year: No Review of Systems Constitutional: Negative Eyes: Negative ENT: Negative Cardiovascular: Negative Respiratory: Negative Gastrointestinal: Negative Genitourinary: Negative Musculoskeletal: Other Skin: Negative Neurological: Negative Psychological: Normal All Other Systems Reviewed And Are Negative: Yes Physical Exam - Summary Physical Exam Summary: Inequality in length of bilateral lower extremities with left extremity shorter than right. PMS intact distally. No ecchymosis, erythema, swelling noted to left hip or left extremity. Triage Information Reviewed: Yes Vital Signs On Initial Exam: Initial Vitals Temp Pulse Resp BP Pulse Ox 99.2 F 120 20 140/87 96 12/09/18 21:39 12/09/18 21:39 12/09/18 21:39 12/09/18 21:39 12/09/18 21:39 Vital Signs Reviewed: Yes Appearance: Positive: Well-Appearing Skin: Positive: Warm Head/Face: Positive: Normal Head/Face Inspection Eyes: Positive: Normal Neck: Positive: Supple Respiratory/Lung Sounds: Positive: Clear to Auscultation Cardiovascular: Positive: Normal Abdomen Description: Positive: Nontender Musculoskeletal: Positive: Normal Neurological: Positive: Normal Psychiatric: Positive: Normal AVPU Assessment: Alert - [place] Coma Scale Best Eye Response: 4 - Spontaneous Best Motor Response: 6 - Obeys Commands Best Verbal Response: 5 - Oriented Coma Scale Total: 15 Diagnostics - Vital Signs Vital Signs Temp Pulse Resp BP Pulse Ox 12/09/18 22:42 104 100/72 93 12/09/18 22:30 97 81/58 92 12/09/18 22:27 96 82/61 93 12/09/18 22:13 66/44 12/09/18 22:05 16 12/09/18 22:00 108 96 12/09/18 21:42 117 140/87 94 12/09/18 21:41 117 95 12/09/18 21:39 99.2 F 120 20 140/87 96 - Laboratory Lab Statement: Any lab studies that have been ordered have been reviewed, and results considered in the medical decision making process. Lower Extremity Course/Dx - Course Course Of Treatment: Patient complains of left hip pain status post fall today. History of left hip replacement a weeks ago Dr. Kahn. Patient states he fell on his left side while trying to get up from the couch. Denies any other pain injury or symptoms. Medical history is hypertension. Physical exam: Inequality in length of bilateral lower extremities with left extremity shorter than right. PMS intact distally. No ecchymosis, erythema, swelling noted to left hip or left extremity. Vital signs within normal limits. X-ray positive for left hip dislocation. His cussed sedation procedure with anesthesiologist Dr. Marshall who refused to perform sedation in ER, stating he would only do it in the OR. Discussed patient with Dr. Castellanos strategic sourcing consultant for ortho who recommended sedation and reduction in the OR at 6 AM this morning. Patient last meal 7:15 PM. Patient initially given morphine 4 mg with subsequent drop in blood pressure to 66 SBP and O2 sats 91. Discussed pain control with Dr. Kahn who recommended Percocet 5/325 milligrams 2 every 4 hours for pain control with very small sips of water. Nothing by mouth otherwise. Patient admitted to ortho - Diagnoses Provider Diagnoses: Hip dislocation, left Discharge - Sign-Out/Discharge Documenting (check all that apply): Patient Departure Patient Received Moderate/Deep Sedation with Procedure: No - Discharge Plan Condition: Stable Disposition: ADMITTED TO [facility] - Billing Disposition and Condition Condition: STABLE Disposition: Admitted to [facility]
[2018-12-10] MEDS ORDERED: oxyCODONE/Acetamin 5/325 MG* TAB PO ONE (00:38)
[2018-12-10] MEDS ORDERED: oxyCODONE/Acetamin 5/325 MG* TAB PO PRN (01:05)
[2018-12-10] MEDS: Lactated Ringers 1000 ML Bag* 1,000 ML IV SCH ×2 (01:10→03:10)
[2018-12-10] MEDS ORDERED: fentaNYL* 50 MCG/ML 2 ML VIAL (100 MCG VIAL) ONE ×2 (06:06→07:08)
[2018-12-10] MEDS ORDERED: Propofol* 10 MG/ML 20 ML BTL ONE (06:07)
[2018-12-10] MEDS ORDERED: Midazolam* 1 MG/ML 2 ML VIAL (2 MG) ONE (06:07)
[2018-12-10] MEDS ORDERED: Acetaminophen TAB* 325 MG PO PRN (06:46)
[2018-12-10] MEDS ORDERED: Ondansetron INJ* 2 MG/ML VIAL IV PRN (06:46)
[2018-12-10] MEDS ORDERED: HYDROcodone/ACETAMIN 5-325 MG* 1 TAB PO PRN (06:46)
[2018-12-10] MEDS ORDERED: Ibuprofen TAB* 600 MG PO PRN (06:46)
[2018-12-10] MEDS ORDERED: Naloxone* 0.4 MG/ML 1 ML VIAL IV PRN (06:46)
[2018-12-10] MEDS ORDERED: HYDROcodone/ACETAMIN 5-325 MG* 1 TAB ONE (07:08)
[2018-12-10] MEDS: fentaNYL* 50 MCG/ML 2 ML VIAL (100 MCG VIAL) IV PRN ×3 (07:11→07:29)
--- NOTE | 2018-12-10 08:55 | OP ---
DATE OF OPERATION: 12/10/18 - ROOM #[id number] DATE OF : 50 SURGEON: Yanely Castellanos MD ANESTHESIA: MAC. PRE-OP DIAGNOSIS: Dislocation of left total hip. POST-OP DIAGNOSIS: Dislocation of left total hip. OPERATIVE PROCEDURE: Closed reduction, left hip. ESTIMATED BLOOD LOSS: Zero. INDICATION FOR PROCEDURE: Ryan is a 68-year-old man who had a left hip replacement approximately [address] Kahn. Yesterday, he was trying to get from his couch to his hospital bed and he fell. He is not sure what happened. He had sudden pain in the left hip. This occurred around noon. He was home for the day and, after he ate dinner at 7:15, he decided to come to the emergency room. X-ray shows hip was dislocated. Because he had a full stomach, he was not offered anesthesia for several hours, so he was brought to the operating room this morning for closed reduction of left hip. DESCRIPTION OF PROCEDURE: The patient was brought to the operating room and was given a sedation anesthetic and then with downward pressure on the pelvis, the left hip was flexed 90 degrees, the knee was flexed 90 degrees, and upward pressure was pulled on the hip. The hip was felt to reduce and then x-ray AP and lateral of the left hip confirmed concentric reduction of the total hip arthroplasty. The patient was left supine with pillows between his legs, brought to the recovery room in good condition. [id number]/[facility] #: [id number] MTDD
[2018-12-10 09:04] VITALS: BP 135/85
--- NOTE | 2019-01-12 14:02 | DS ---
DISCHARGE SUMMARY: DATE OF ADMISSION: 12/10/18 DATE OF DISCHARGE: 12/10/18 CHIEF COMPLAINT: Left hip pain. HISTORY OF PRESENT ILLNESS: Ryan is a 68-year-old man who had a total hip replacement done by Dr. Kahn. Earlier this year, he says that he was on his couch and he woke up on his floor, he was not sure what happened, but his hip was in significant pain. He came to the emergency room, had some x-rays which showed a dislocation of his total hip arthroplasty without any fracture. The patient was admitted to the hospital and brought to the operating room the same day where a closed reduction was performed. He was placed in a knee immobilizer and then discharged to home with walker for ambulation. Advised to follow up with Dr. Kahn for reevaluation. He was treated only with oral pain medication. No physical therapy was ordered. The patient tolerated the procedure well and the hospitalization well. [id number]/[facility] #: [id number] MTDD
--- NOTE | 2019-01-14 18:31 | DS ---
CC: Dr. Castellanos DISCHARGE SUMMARY: ADDENDUM: The patient was discharged to home in good condition and will follow up with Dr. Kahn in 1 to 3 days. [id number]/[facility] #: [id number] MTDTiffanie
== END 2018-12-10 09:32 | disposition home or self-care (01) ==
LOC: ED 21:35 → SSU 12-10 00:59
PROVIDERS: ADMIT Orthopaedic Surgery; ATTEND Orthopaedic Surgery
DX: S73.005A Unspecified dislocation of left hip, initial encounter (principal); M25.552 Pain in left hip; Z79.01 Long term (current) use of anticoagulants; I10 Essential (primary) hypertension; W19.XXXA Unspecified fall, initial encounter; Y92.9 Unspecified place or not applicable; Z96.642 Presence of left artificial hip joint; F41.9 Anxiety disorder, unspecified; F32.9 Major depressive disorder, single episode, unspecified; F10.20 Alcohol dependence, uncomplicated
CPT/HCPCS: 96361; 96374; 96375; 99285; A9270-GY; G0378; J2250; J2270; J2405; J2704; J3010

== ENCOUNTER 2021-07-26 08:21 | Observation (INO) ==
[~2021-07-26 08:21] MED LIST changes: -Acetaminophen IV 1GM/100ML * 1,000 MG/100 ML VIAL IVPB ONE; +Buffered Lidocaine 1% SYRIN 1 ml INTRADERM ONE; -Buffered Lidocaine 1% SYRIN* 1 ML/SYRINGE INTRADERM ONE; -Dexamethasone IV* 4 MG/ML 1 ML (4 MG) IV SLOW PU ONE; +Famotidine IV 10 MG/ML 2 ml VIAL (20 mg) IV ONE; -Famotidine IV* 10 MG/ML 2 ML (20 mg) IV ONE; -Gabapentin CAP(*) 300 MG PO ONE; -Lactated Ringers 1000 ML Bag* 1,000 ML IV SCH; +Lactated Ringers 1000 ml BAG 1,000 ML IV SCH; -celeCOXIB CAP* 200 MG PO ONE
[2021-07-26] MEDS ORDERED: Famotidine IV 10 MG/ML 2 ml VIAL (20 mg) ONE (09:10)
[2021-07-26] MEDS ORDERED: ceFAZolin 2 GM PREMIX 2 GM/50 ML BAG ONE (09:10)
[2021-07-26] MEDS ORDERED: Midazolam 2 mg/2 ml VIAL 1 mg/ml 2 ml VIAL (2 mg) ONE (09:40)
[2021-07-26] MEDS ORDERED: fentaNYL 100 mcg/2 ml 50 MCG/ML VIAL ONE ×2 (09:40→10:03)
[2021-07-26] MEDS ORDERED: Lidocaine 2% PF 5 ML VIAL ONE ×2 (09:42→10:03)
[2021-07-26] MEDS ORDERED: Midazolam 5 mg/5 ml VIAL 1 mg/ml 5 ml VIAL (5 mg) ONE (10:03)
[2021-07-26] MEDS ORDERED: ROPIVACAINE 5 MG/ML 30 ML BTL (0.5%) ONE (10:03)
[2021-07-26] MEDS ORDERED: Propofol 10 mg/ml 100 ML BTL 100 ML ONE (10:37)
[2021-07-26] MEDS ORDERED: Ondansetron 4 mg VIAL 2 MG/ML 2 ml VIAL ONE (10:40)
[2021-07-26] MEDS ORDERED: Phenylephrine IV 10 MG/ML 1 ml VIAL ONE (10:40)
[2021-07-26] MEDS ORDERED: Dexamethasone IV 4 MG/ML VIAL 1 ml VIAL ONE (10:40)
[2021-07-26] MEDS ORDERED: diPHENhydraMINE IV 50 MG/ML 1 ml VIAL (BENADRYL) IV PRN (12:27)
[2021-07-26] MEDS ORDERED: diPHENhydraMINE 25 mg TAB PO PRN (12:27)
[2021-07-26] MEDS ORDERED: Magnesium Hydroxide LIQ 30 ML UDC PO PRN (12:27)
[2021-07-26] MEDS ORDERED: Ondansetron 4 mg VIAL 2 MG/ML 2 ml VIAL IV PRN ×2 (12:27→13:43)
[2021-07-26] MEDS ORDERED: Morphine 2 MG/ML SYRINGE IV PRN (12:27)
[2021-07-26] MEDS ORDERED: Lactulose 30 ml UDC PO PRN (12:27)
[2021-07-26] MEDS ORDERED: Ondansetron ODT 4 mg TAB 4 MG TAB PO PRN (12:27)
[2021-07-26] MEDS ORDERED: Propofol 10 MG/ML 20 ML BTL ONE (13:40)
[2021-07-26] MEDS ORDERED: HYDROmorphone 1 MG/1 ML SYRINGE IV PRN (13:43)
[2021-07-26] MEDS ORDERED: Naloxone 0.4 mg VIAL 0.4 mg/ml 1 ml VIAL IV PRN (13:43)
[2021-07-26] MEDS ORDERED: fentaNYL 100 mcg/2 ml 50 MCG/ML VIAL IV PRN (13:43)
[2021-07-26] MEDS: Lactated Ringers 1000 ml BAG 1,000 ML IV SCH (15:33)
[2021-07-26] MEDS: ceFAZolin 1 GM ADVAN 1 GM in NS 0.9% 50 ML 50 ML IVPB SCH (19:51)
[2021-07-26] MEDS: Magnesium Hydroxide LIQ 30 ML UDC PO SCH (19:53)
[2021-07-27] MEDS: Lactated Ringers 1000 ml BAG 1,000 ML IV SCH (02:06)
[2021-07-27] MEDS: ceFAZolin 1 GM ADVAN 1 GM in NS 0.9% 50 ML 50 ML IVPB SCH ×2 (04:31→12:20)
[2021-07-27 06:27] LABS: Hematocrit 39 % (42-52); Hemoglobin 12.8 g/dL (14.0-18.0); Mean Platelet Volume 7.6 fL (7.4-10.4); Platelet Count 242 10^3/uL (150-450)
[2021-07-27 06:50] LABS: Calcium 8.2 mg/dL (8.6-10.3); Potassium 4.9 mmol/L (3.5-5.0)
[2021-07-27] MEDS: Magnesium Hydroxide LIQ 30 ML UDC PO SCH (08:27)
[2021-07-27] MEDS ORDERED: Vitamin THERAPEUTIC TAB PO SCH (09:00)
[2021-07-27 11:52] VITALS: BP 114/69
== END 2021-07-27 14:43 | disposition home or self-care (01) ==
LOC: EDACCT# → AA 08:21 → INTOOBSV 08:21 → SSU 15:27
PROVIDERS: ADMIT Orthopaedic Surgery Adult Reconstructive Orthopaedic Surgery; ATTEND Orthopaedic Surgery Adult Reconstructive Orthopaedic Surgery